=== PATIENT | male | born 1960 | race Caucasian/White ===

== ENCOUNTER → 2017-03-30 | Outpatient (CLI) | payer BC ==
[~2017-03-30] MED LIST: LITHIUM CARB300 MG PO; LOTREL 10 MG-201 CAP PO; TIMOPTIC 0.25% OPH
== END | disposition home or self-care (01) ==
LOC: LAB 10:42
DX: F31.9 Bipolar disorder, unspecified (principal)

== ENCOUNTER → 2017-06-23 | Outpatient (CLI) | payer OTHER | END | disposition home or self-care (01) | LOC: LAB 10:28 | DX: F31.9 Bipolar disorder, unspecified (principal) ==

== ENCOUNTER 2017-08-26 04:37 | Inpatient (IN) | payer OTHER ==
[~2017-08-26] VITALS: Ht 167.6 cm; Wt 106.1 kg
[2017-08-26] VITALS (25 sets, daily range): BP systolic 66–120; BP diastolic 40–76
--- NOTE | ~2017-08-26 | CON ---
[place], [place] REPORT OF CONSULTATION [facility]DEN [id number] UNIT #: [id number] ROOM: 410 DOCTOR: CARLEY WESTGARY BIRTHDATE: [birth year] DOS: 08/26/2017 REQUESTING PHYSICIAN: Dr. Shah. REASON FOR CONSULTATION: New onset atrial fibrillation. ASSESSMENT: 1. Current presentation for near syncope (the patient fell to his knees, no loss of consciousness). 2. Significant diarrhea starting last night. 3. New onset asymptomatic atrial fibrillation. 4. Relatively low heart rate could indicate early sick sinus syndrome. 5. Hypertension. 6. Unknown level of lipid. 7. Obesity with probable obstructive sleep apnea. PLAN: 1. Cycle cardiac enzymes. 2. Check thyroid function test. 3. Proceed with echocardiogram. 4. Lexiscan stress test. 5. Lopressor 25 mg p.o. b.i.d. 6. Stop heparin and start Lovenox. 7. Initiate Xarelto this evening. 8. Echocardiogram and stress test will be done this coming Monday. 9. Consider sleep study as an outpatient. 10. Exercise and weight loss. 11. Early followup upon discharge in our clinic here, [facility] and cardioversion will be considered within 2-3 weeks from anticoagulation. HISTORY OF PRESENT ILLNESS: The patient is a pleasant 57-year-old gentleman unknown to our group was admitted this morning after 3 bouts of severe diarrhea. Apparently, after that he was found by his that he was in drenching sweats, even though he denies ever any chest pain, chest pressure, heaviness or tightness. No symptomatic palpitation or any associated dizziness, lightheadedness or near syncope. The patient denies also any fever or chills. He had been maintaining good appetite with no significant weight changes recently. The patient was found out to be in atrial fibrillation, which was an incidental finding in the Emergency Room. The patient adamantly denies any complete loss of consciousness. He felt dizzy, lightheaded and fell to his knees. He never had such complaint before. He is active, walks routinely with no reported cardiac complaints. He easily can walk a mile without any provoked cardiac complaints. Main limitation after that is low back pain. He sleeps on 1 pillow with no reported PND, orthopnea or pedal edema. The patient does report loud snoring. PAST MEDICAL HISTORY: As detailed in my assessment. SOCIAL HISTORY: The patient denies ever any tobacco, alcohol or illicit drug abuse. [place], [place] REPORT OF CONSULTATION NAME: VANNESSA SNOWDEN UNIT #: [id number] ROOM: 410 DOCTOR: GARY HOWE MD BIRTHDATE: [birth year] FAMILY HISTORY: Both parents with no reported heart problems. He has 1 brother and 1 sister with no reported early heart disease. CURRENT MEDICATIONS: Zosyn, Zofran, Restoril, Flagyl. ALLERGIES: The patient has no known drug allergies. REVIEW OF SYSTEMS: Currently, the patient denies any headache, diplopia or blurry vision. No fever. No chills. No night sweats. No abdominal pain. No bright red blood per rectum or tarry stools. The patient denies any joint pain or muscular pain. No anxiety. No depression. No polyuria. No polydipsia. No skin rash. Review of all other systems has been negative. PHYSICAL EXAMINATION: GENERAL: The patient is alert, oriented x3, quite pleasant, sitting up in bed, does not appear in distress. Denies any ongoing cardiac complaints. VITAL SIGNS: Blood pressure 109/73, heart rate 113, respiratory rate of 14 and temperature 97.8. HEENT: Extraocular muscle intact. Pupils equal, round, reactive to light. Conjunctivae: No pallor. Throat: No petechiae. NECK: Good carotid upstroke. Unable to appreciate any bruit. No lymphadenopathy. No thyromegaly. HEART: S1, S2 with faint holosystolic murmur at the left upper sternal border. No rub. No sternal heave. CHEST AND BACK: No deformities. LUNGS: Decreased air movement. No rayray wheezing or rales. ABDOMEN: Obese, soft, nontender. Present bowel sounds. No masses. No bruits. LOWER EXTREMITIES: There is no edema on both under JOSE ELIAS hose with faint distal pulses. NEUROLOGIC: Grossly nonfocal. SKIN: There is no significant rash. DIAGNOSTIC DATA: Electrocardiogram showing atrial fibrillation with relatively controlled heart rate off any negative chronotropic medications. There are diffuse nonspecific ST-T changes. Chest x-ray showing slight volume overload with bilateral ____ slightly enlarged cardiac silhouette. LABORATORY DATA: White count 15.5, hemoglobin 13.3. There is no left shift. Troponin less than 0.015. BUN 25, creatinine 1.8, alk phos is 125. [place], [place] REPORT OF CONSULTATION NAME: VANNESSA SNOWDEN UNIT #: [id number] ROOM: [facility] DOCTOR: GARY HOWE MD BIRTHDATE: [birth year] GARY HOWE MD CM:CONSTR:REPORT OF CONSULTATION 1116 09/20/17 1906 interface
--- NOTE | ~2017-08-26 | PR ---
[place], [place] PROGRESS NOTE NAME: [facility] SNOWDEN [id number] UNIT #: [id number] ROOM: 410 DOCTOR: QUINTON GARNICA MD BIRTHDATE: [birth year] DOS: 08/28/2017 CARDIOLOGY PROGRESS NOTE SUBJECTIVE: The patient was seen in the Cardiology Department just prior to his stress test. The patient is a 57-year-old man who had no previous history of heart disease. He awakened on the morning of admission with diaphoresis, dyspnea and lightheadedness. He had diarrhea and possible syncope. He did fall and injure his right eyebrow. He denied any chest pain. He was seen by Cardiology on 08/26/2017, at which time he was in atrial fibrillation. He subsequently did convert spontaneously to sinus rhythm and now does feel better. His past history is positive for hypertension and lactose intolerance. PHYSICAL EXAMINATION: VITAL SIGNS: Today, his pulse is 70 and regular, blood pressure is 154/72. He is afebrile. NECK: Supple. He has no jugular distention. Carotids are full. LUNGS: Respirations are unlabored. His chest is clear. HEART: Has a regular rhythm with a fourth heart sound, but no third heart sound or murmur. The PMI is not displaced. ABDOMEN: Soft. EXTREMITIES: Showed no edema. LABORATORY DATA: Hemoglobin is 11.7, white count 7400 today, platelet count 285,000. Sodium is 148, potassium 4.3, BUN 16, creatinine 1.34. IMPRESSION: 1. Paroxysmal atrial fibrillation. Patient has reverted spontaneously to sinus rhythm. 2. CHADS-VASc score equals 1. Patient is being anticoagulated with rivaroxaban. 3. History of hypertension. PLAN: We will proceed with an exercise stress test. Further recommendations will depend upon the results of the stress test and the echocardiogram that was also done today. We thank the hospitalist physicians for asking our advice regarding his care. [place], [place] PROGRESS NOTE NAME: VANNESSA SNOWDEN Elisa UNIT #: [id number] ROOM: 410 DOCTOR: QUINTON GARNICA MD BIRTHDATE: [birth year] QUINTON GARNICA MD CM:PNTRANS [id number] QUINTON GARNICA MD 08/28/17 2301 interface
[~2017-08-26 04:37] MED LIST changes: -LOTREL 10 MG-201 CAP PO; +LOTREL 10-20 M1 EACH PO
[2017-08-26 05:13] LABS: BASO # 0.1 10*3/uL (0.0-0.1); BASO % 0.4 % (0.0-1.0); EOS # 0.2 10*3/uL (0.0-0.4); EOS % 1.4 % (1.0-4.0); HEMATOCRIT 40.9 % (42.0-52.0); HEMOGLOBIN 13.3 g/dl (14.0-18.0); LYMPH # 2.6 10*3/uL (1.3-4.4); LYMPH % 16.9 % (27.0-41.0); MEAN CELL VOLUME 91.7 fl (80.0-94.0); MEAN CORPUSCULAR HGB 29.8 pg (27.0-31.0); MEAN CORPUSCULAR HGB CONC 32.5 g/dl (33.0-37.0); MONO # 0.7 10*3/uL (0.1-1.0); MONO % 4.2 % (3.0-9.0); NEUT # 11.9 10*3/uL (2.3-7.9); NEUT % 76.5 % (47.0-73.0); PLATELET COUNT AUTOMATED 377 10*3/uL (130-400); RED BLOOD COUNT 4.46 10*6/uL (4.50-5.90); RED CELL DISTRI WIDTH 14.7 % (0-14.5); WHITE BLOOD COUNT 15.5 10*3/uL (4.8-10.8)
--- NOTE | 2017-08-26 05:21 | NUR ---
DR NOTIFIED OF CRITICAL LACTIC ACID 3.1
[2017-08-26 05:23] LABS: ACT PARTIAL THROMBO TIME 22.7 SECONDS (20.8-31.5)
--- NOTE | 2017-08-26 05:24 | NUR ---
HEMOOCCULT TESTING DONE BY DR. ROGERS AND WAS NEGATIVE FOR BLOOD. WILL CONTINUE TO MONITOR.
[2017-08-26 05:30] LABS: ALBUMIN 3.2 gm/dl (3.1-4.5); CREATININE 1.84 mg/dL (0.70-1.30); POTASSIUM 3.8 mmol/L (3.5-5.1); TOTAL PROTEIN 7.2 gm/dL (6.4-8.2)
[2017-08-26 07:06] LABS: BILIRUBIN NEGATIVE (NEGATIVE); BLOOD NEGATIVE (NEGATIVE); CLARITY CLEAR (CLEAR); COLOR YELLOW (YELLOW); GLUCOSE NEGATIVE (NEGATIVE); KETONE NEGATIVE (NEGATIVE); LEUKO ESTERASE NEGATIVE (NEGATIVE); NITRITE NEGATIVE (NEGATIVE); SPECIFIC GRAVITY <= 1.005 (1.005-1.030); UROBILINOGEN 0.2 E.U./dl (0.2-1.0)
--- NOTE | 2017-08-26 07:14 | NUR ---
DR. CARCAMO NOTIFIED OF CRITICAL LACTIC RESULT.
[2017-08-26 07:20] LABS: BACTERIA TRACE; MUCOUS TRACE; RBC 0-2 rbc/hpf (0-2)
--- NOTE | 2017-08-26 07:39 | NUR ---
REPORT RECEIVED AT 0710 FROM ARMANI SMITH. THIS PT IS AWAKE AND ALERT. HIS COLOR IS PINK,SKIN W/D. RESPIRATIONS ARE NON-LABORED. IV FLUID IS INFUSING,SITE APPEARS ASYMPTOMATIC. PT HAS NO CO PAIN OR DISCOMFORT AT THIS TIME. MONITOR SHOWS ATRIAL FIBRILLATION,RATE AT 118. PT HAS NEVER BEEM DIAGNOSED WITH AFIB IN THE PAST. HE WILL BE ADMITTED,WAITING FOR BED ASSIGNMENT. AB SMITH
--- NOTE | 2017-08-26 08:30 | NUR ---
A 57yr old male, admitted to [facility], under the services of VIGNESH Jones DO with a diagnosis of colitis, syncope and new onset atrial fib. Chief complaint is diarrhea, weak, passing out at home. Patient arrived via stretcher from ER. Monitor applied. Initial assessment completed. Vital signs taken and recorded. See assessment for past medical history, medications and allergies. Patient and/or family oriented to unit. [facility] visitation policy reviewed. Clothing/patient valuable form completed. SABRINA DUNBAR L
[2017-08-26] MEDS ORDERED: LITHIUM CARBON150 MG PO (08:51)
[2017-08-26] MEDS ORDERED: LITHIUM CARBON300 MG PO (08:52)
--- NOTE | 2017-08-26 09:05 | NUR ---
DR WEIR HERE, LAB CALLED WITH LACTIC ACID 2.2. DR WEIR IMMEDIATELY NOTIFIED.
--- NOTE | 2017-08-26 10:00 | NUR ---
CARDIOLOGY IN TO SEE PT
--- NOTE | 2017-08-26 13:14 | NUR ---
TRANSFERRED TO [facility] WITH BELONGINGS
--- NOTE | 2017-08-26 20:23 | NUR ---
1952 RESTING IN BED WATCHING TV. ALERT AND PLEASANT. DENIES C/O'S DIZZINESS OR DIARRHEA AT THIS TIME. IV FLUIDS CONT. NO DISTRESS NOTED.
--- NOTE | 2017-08-26 22:19 | NUR ---
UP TO BR. PUT CALL LIGHT ON. GAIT STEADY. NO C/O'S DIZZINESS VOICED. IV FLUIDS CONT. MONITOR REMAINS A-FIB. CONDITION GUARDED.
--- NOTE | 2017-08-26 23:33 | NUR ---
PATIENT RESTING COMFORTABLY IN BED. PLEASANT AND COOPERATIVE WITH CARE. RESPIRATIONS EASY/REG, PATIENT HAS NO VOICED COMPLAINTS AT THIS TIME. FLUIDS MAINTAINED PER ORDER, CALL LIGHT IN REACH. WILL MONITOR.
[2017-08-27] VITALS: BP 117/67
--- NOTE | 2017-08-27 01:32 | NUR ---
24 HOUR CHART CHECK COMPLETE
--- NOTE | 2017-08-27 03:43 | NUR ---
SLEEPING, NO SXS OF DISTRESS. FLUIDS MAINTAINED PER ORDER. CALL LIGHT IN REACH.
[2017-08-27 05:57] LABS: BASO % 0.4 % (0.0-1.0); EOS # 0.1 10*3/uL (0.0-0.4); EOS % 1.3 % (1.0-4.0); HEMATOCRIT 35.5 % (42.0-52.0); HEMOGLOBIN 11.7 g/dl (14.0-18.0); LYMPH # 1.8 10*3/uL (1.3-4.4); LYMPH % 24.1 % (27.0-41.0); MEAN CELL VOLUME 93.9 fl (80.0-94.0); MEAN PLATELET VOLUME 10.3 fl (9.6-12.3); MONO # 0.7 10*3/uL (0.1-1.0); MONO % 9.7 % (3.0-9.0); NEUT # 4.8 10*3/uL (2.3-7.9); NEUT % 64.1 % (47.0-73.0); PLATELET COUNT AUTOMATED 285 10*3/uL (130-400); RED BLOOD COUNT 3.78 10*6/uL (4.50-5.90); RED CELL DISTRI WIDTH 15.7 % (0-14.5); WHITE BLOOD COUNT 7.4 10*3/uL (4.8-10.8)
[2017-08-27 06:29] LABS: ALBUMIN 3.1 gm/dl (3.1-4.5); ALKALINE PHOSPHATASE 105 U/L (45-117); BUN 16 mg/dl (7-24); CHLORIDE 119 mmol/L (98-107); CHOLESTEROL 127 mg/dL (<200); CREATININE 1.34 mg/dL (0.70-1.30); HDL CHOLESTEROL 32 mg/dl (40-60); LDL CHOLESTEROL 61 mg/dL (9-159); PHOSPHOROUS 2.3 mg/dL (2.5-4.9); POTASSIUM 4.3 mmol/L (3.5-5.1); SGOT/AST 21 IU/L (3-35); SGPT/ALT 43 U/L (12-78); SODIUM 148 mmol/L (136-145); TOTAL PROTEIN 6.8 gm/dL (6.4-8.2); TRIGLYCERIDES 170 mg/dl (<150); VLDL CHOLESTEROL 34 mg/dL (6-40)
[2017-08-27 06:34] LABS: THYROID STIM HORMONE (HS) 0.515 uIU/ml (0.358-4.75)
[2017-08-27 07:30] LABS: VITAMIN D, 25-HYDROXY 10.3 ng/mL (30-100)
[2017-08-27 08:00] VITALS: BP 113/66
[2017-08-27 10:00] VITALS: BP 112/67
--- NOTE | 2017-08-27 11:41 | NUR ---
PT GIVEN TEACHING PAMPHLET ON NEW MEDICATION; METOPROLOL.
[2017-08-27 12:00] VITALS: BP 109/65
--- NOTE | 2017-08-27 12:00 | NUR ---
PATIENT CONVERTED TO NORMAL SINUS RHYTHYM WITH BUNDLE BRANCH BLOCK WITH RATE OF 60'S -70'S.
--- NOTE | 2017-08-27 13:17 | NUR ---
PT GIVEN TYLNEOL FOR COMPLAINTS OF HEADACHE AT THIS TIME. WILL MONITOR.
--- NOTE | 2017-08-27 13:50 | NUR ---
PATIENT HAVING SINUS BRADYCARDIA WHILE SLEEPING, RATE 50'S AND REGULAR, LOW 44BPM.
[2017-08-27 16:00] VITALS: BP 112/67
--- NOTE | 2017-08-27 19:35 | NUR ---
Alert and oriented x3. at bedside. Lungs clear throughout. Denies dizziness. Abdomen normoactive bs x4. IVf infusing per orders. Medicated with tylenol per prn order for right rib pain.
[2017-08-27 20:00] VITALS: BP 117/60
--- NOTE | 2017-08-27 23:30 | NUR ---
ASSUMED CARE FOR THIS PT AT THIS TIME. NO C/O VOICED. SOFT BM COLLECTED FOR O&P AND CX. PT DENIES ANY FURTHER EPISODES OF DIZZINESS/LIGHTHEADEDNESS. CALL LIGHT IN REACH. PT REMINDED OF NPO STATUS AFTER MIDNIGHT FOR TESTING. PT ACKNOWLEDGES.
[2017-08-28] VITALS: BP 111/54
--- NOTE | 2017-08-28 01:30 | NUR ---
24 HR chart check completed.
[2017-08-28 04:00] VITALS: BP 118/68
--- NOTE | 2017-08-28 06:34 | NUR ---
PT AMBULATING BY SELF TO BR. DENIES ANY C/O AT THIS TIME.
[2017-08-28 08:00] VITALS: BP 154/72
--- NOTE | 2017-08-28 09:00 | NUR ---
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 Patient states lives at home with . There are few steps in the home. Physician: sue nguyen [facility]acy: [facility]: [facility] Patient's level of ADLs: INDEPENDENT Patient has working utilities: all working DME: none Follow-up physician's appointment after d/c: will be made by hospitalist nurse director upon discharge Does patient want to access PORTAL?: no Discharge plan discussed with patient, present, patient lives at home with , is independent in adls and ambulation, patient will be going back home when able, patient works and drives. patient denies any home needs. BETTINA MORENO
--- NOTE | 2017-08-28 10:37 | NUR ---
INFORMED SIGNED CONSENT OBTAINED FOR CARDIOLITE STRESS TEST WITH DR GARNICA. RESTING EKG NSR HR 65 BP 144/84 IN SUPINE POSITION, STANIDNG HR 71 BP 150/80. PT COMPLETED 4;45 OF A JUSTUS PROTOCOL WITH PT COMPLETING 1;45 OF STAGE II AT 2.5 MPH AND A 12% GRADE. PT REACHED A PEAK HR OF 145 WHICH REPRESENTS 90% OF PREDICTED MAXIMUM AND A PEAK BP OF 192/80. PVC'S WITH COUPLETS NOTED, NO ST CHANGES. TEST TERMINATED DUE TO FATIGUE AND SOB. LAST HR OF 102 BP 168/84. PT IN STABLE CONDITION, AWAITING NUCLEAR IMAGES.
[2017-08-28 12:00] VITALS: BP 129/70
--- NOTE | 2017-08-28 14:43 | NUR ---
PT AWAKE ALERT AND ORIENTED X3, NO COMPLIANTS AT THIS TIME, DENIES PAIN, N/V/D SPOUSE AT BEDSIDE.
[2017-08-28] MEDS ORDERED: NATURE'S BLEND F1 MG PO (15:29)
[2017-08-28] MEDS ORDERED: Vitamin D PO (15:29)
[2017-08-28] MEDS ORDERED: XARE20MG PO (15:29)
[2017-08-28] MEDS ORDERED: LOPRESSOR25 MG PO (15:29)
--- NOTE | 2017-08-28 16:50 | NUR ---
Discharge instructions reviewed with patient/family. Patient receptive and verbalizes understanding. Follow-up care arranged. Written instructions given to patient/family. Patient left the unit with his and all personal belongings. DOLLY REYNOLDS
== END 2017-08-28 16:50 | disposition home or self-care (01) | DRG 871 ==
LOC: ED 04:37 → 4E 06:43 → EDHOLD 06:43 → 4E 07:18 → ICCU 08:13 → 4E 12:19
PROVIDERS: Emergency Medicine Emergency Medical Services; Internal Medicine; ADMIT Internal Medicine
PROC: 4A02XM4 Measurement of Cardiac Total Activity, External Approach (ICD-10-PCS; principal; 2017-08-28)
DX: A41.9 Sepsis, unspecified organism (principal); N17.0 Acute kidney failure with tubular necrosis; E87.2 Acidosis; I95.9 Hypotension, unspecified; E83.41 Hypermagnesemia; E83.39 Other disorders of phosphorus metabolism; I48.0 Paroxysmal atrial fibrillation; K52.9 Noninfective gastroenteritis and colitis, unspecified; E86.1 Hypovolemia; R65.20 Severe sepsis without septic shock; D64.9 Anemia, unspecified; E73.9 Lactose intolerance, unspecified; I10 Essential (primary) hypertension; E66.9 Obesity, unspecified; F31.9 Bipolar disorder, unspecified; H40.9 Unspecified glaucoma; E53.8 Deficiency of other specified B group vitamins; Z82.49 Family history of ischemic heart disease and other diseases of the circulatory system; Z80.1 Family history of malignant neoplasm of trachea, bronchus and lung; Z68.37 Body mass index [BMI] 37.0-37.9, adult; Z79.899 Other long term (current) drug therapy; Z79.01 Long term (current) use of anticoagulants

== ENCOUNTER 2017-09-13 19:03 | Inpatient (IN) | payer OTHER ==
[~2017-09-13] VITALS: Ht 167.6 cm; Wt 98.5 kg
[~2017-09-13 19:03] MED LIST changes: +LITHIUM CARBON150 MG PO; +LITHIUM CARBON300 MG PO; +LOPRESSOR25 MG PO; +NATURE'S BLEND F1 MG PO; +Vitamin D PO; +XARE20MG PO
[2017-09-13 19:12] VITALS: BP 143/72
[2017-09-13 19:50] LABS: BASO # 0.1 10*3/uL (0.0-0.1); BASO % 0.5 % (0.0-1.0); EOS # 0.1 10*3/uL (0.0-0.4); EOS % 1.4 % (1.0-4.0); HEMATOCRIT 35.6 % (42.0-52.0); HEMOGLOBIN 11.6 g/dl (14.0-18.0); LYMPH # 1.9 10*3/uL (1.3-4.4); LYMPH % 21.1 % (27.0-41.0); MEAN CORPUSCULAR HGB 30.3 pg (27.0-31.0); MEAN CORPUSCULAR HGB CONC 32.6 g/dl (33.0-37.0); MEAN PLATELET VOLUME 10.2 fl (9.6-12.3); MONO # 0.9 10*3/uL (0.1-1.0); MONO % 9.4 % (3.0-9.0); NEUT # 6.2 10*3/uL (2.3-7.9); NEUT % 67.4 % (47.0-73.0); PLATELET COUNT AUTOMATED 290 10*3/uL (130-400); RED BLOOD COUNT 3.83 10*6/uL (4.50-5.90); RED CELL DISTRI WIDTH 14.3 % (0-14.5); WHITE BLOOD COUNT 9.2 10*3/uL (4.8-10.8)
[2017-09-13 20:07] LABS: CREATININE 2.26 mg/dL (0.70-1.30); POTASSIUM 4.2 mmol/L (3.5-5.1); TOTAL PROTEIN 8.2 gm/dL (6.4-8.2)
--- NOTE | 2017-09-13 20:41 | NUR ---
CRITICAL LITHIUM LEVEL GIVEN TO SMILEY SMITH AND DR HEDRICK
[2017-09-13 22:36] VITALS: BP 113/51
[2017-09-13 23:00] VITALS: BP 137/61
--- NOTE | 2017-09-13 23:00 | NUR ---
Time: 2299 A 57 year old M admitted to under services of KRISTINA COBIAN DO, Pt. arrived via stretcher from ER. Chief complaint: TREMORS. CLAY ABRAMS
--- NOTE | 2017-09-14 00:12 | NUR ---
SPOKE TO POISON CONTROL AT 1210. RECOMMENDS Q4 LITHIUM LEVELS, Q4 BUN, AND Q4 CREATININE LEVELS TO BE DRAW. WILL BE FOLLOWING UP AT [phone] FOR REPEAT LAB LEVELS.
[2017-09-14] MEDS ORDERED: DEBROX 15 ML 1515 ML OT (01:07)
--- NOTE | 2017-09-14 01:15 | NUR ---
CALLED DR. JENNIFER HARRIS TO INFORM HIM THAT THE MED REC WAS UP TO DATE.
[2017-09-14] MEDS ORDERED: LOPRESSOR25 MG PO (01:19)
--- NOTE | 2017-09-14 01:30 | NUR ---
INFORMED PATIENT THAT THE LAB WOULD BE DRAWING HIS BLOOD EVERY 4 HOURS.
--- NOTE | 2017-09-14 02:30 | NUR ---
POISON CONTROL CALLED & WAS UPDATED ON LITHIUM RESULTS.
--- NOTE | 2017-09-14 02:33 | NUR ---
CRITICAL LAB, LITHIUM 2.28. DR ORANTES NOTIFIED AT 1455.
[2017-09-14 06:12] LABS: BASO % 0.5 % (0.0-1.0); EOS # 0.1 10*3/uL (0.0-0.4); EOS % 1.8 % (1.0-4.0); HEMATOCRIT 33.3 % (42.0-52.0); HEMOGLOBIN 10.7 g/dl (14.0-18.0); LYMPH # 1.6 10*3/uL (1.3-4.4); LYMPH % 24.2 % (27.0-41.0); MEAN CELL VOLUME 95.1 fl (80.0-94.0); MEAN CORPUSCULAR HGB 30.6 pg (27.0-31.0); MEAN CORPUSCULAR HGB CONC 32.1 g/dl (33.0-37.0); MEAN PLATELET VOLUME 10.5 fl (9.6-12.3); MONO # 0.6 10*3/uL (0.1-1.0); MONO % 9.3 % (3.0-9.0); NEUT # 4.3 10*3/uL (2.3-7.9); PLATELET COUNT AUTOMATED 234 10*3/uL (130-400); RED CELL DISTRI WIDTH 14.5 % (0-14.5); WHITE BLOOD COUNT 6.7 10*3/uL (4.8-10.8)
--- NOTE | 2017-09-14 06:35 | NUR ---
VERONICA FROM POISON CONTROL CALLED & UPDATED ON PATIENT.
[2017-09-14 06:45] LABS: ALBUMIN 3.5 gm/dl (3.1-4.5); CREATININE 1.5 mg/dL (0.70-1.30); FREE T4 0.96 ng/dl (0.76-1.46); PHOSPHOROUS 2.4 mg/dL (2.5-4.9); POTASSIUM 4.4 mmol/L (3.5-5.1); TOTAL PROTEIN 7.3 gm/dL (6.4-8.2)
[2017-09-14 06:49] LABS: ACT PARTIAL THROMBO TIME 24.1 SECONDS (20.8-31.5); INTERNATIONAL NORM RATIO 1.1 (2.0-3.5)
[2017-09-14 06:51] LABS: THYROID STIM HORMONE (HS) 2.26 uIU/ml (0.358-4.75)
[2017-09-14 07:33] LABS: VITAMIN D, 25-HYDROXY 17.8 ng/mL (30-100)
[2017-09-14 08:00] VITALS: BP 142/64
[2017-09-14 16:00] VITALS: BP 135/66
[2017-09-14 20:00] VITALS: BP 128/68
--- NOTE | 2017-09-14 20:24 | NUR ---
PT LYING IN BED, EYES OPEN, ALERT ORIENTED AND PLEASANT. NO S/S OF PAIN OR DISTRESS. NO COMPLAINTS VOICED AT THIS TIME. ASSESSMENT COMPLETE, HEART RATE 80 UPON AUSCULTATION, ACTIVE BSX4 QUADS, LUNGS CLEAR THROUGHOUT. NO TREMORS NOTED. ALL SAFETY MEASURES IN PLACE. IV SITE PATENT, DRESSING DRY AND IN TACT. FLUIDS RUNNING PER ORDER. ALL SAFETY MEASURES IN PLACE.
--- NOTE | 2017-09-14 21:00 | NUR ---
PT GIVEN HS MEDICATIONS, TAKEN WITH EASE. RESPIRATIONS EASY AND UNLABORED. NO S/S OF DISTRESS. PT PLEASANT AND COOPERATIVE. IV SITE PATENT AND DRESSING DRY AND IN TACT. NO NEW ABNORMALTIES NOTED, PT LYING IN BED AT THIS TIME.
[2017-09-15] VITALS: BP 135/67
--- NOTE | 2017-09-15 00:47 | NUR ---
24 HR chart check completed.
--- NOTE | 2017-09-15 04:13 | NUR ---
PT NOT AWAKENED PER [facility] POLICY. RESPIRATIONS 16, EASY AND NON LABORED. NO S/S OF PAIN OR DISTRESS. IV FLUIDS RUNNING PER ORDER. IV SITE PATENT, DRESSING DRY AND IN TACT. ALL SAFETY MEASURES IN PLACE.
--- NOTE | 2017-09-15 06:02 | NUR ---
PT 6TH BAG OF IV NORMAL SALINE HUNG AT THIS TIME. PT RESTING, EASILY AROUSED. NO S/S OF DISTRESS. RESPIRATIONS EASY. IV SITE PATENT, DRESSING DRY AND IN TACT.
[2017-09-15 08:00] VITALS: BP 146/80
[2017-09-15 08:03] LABS: CHLORIDE 115 mmol/L (98-107); CREATININE 1.18 mg/dL (0.70-1.30); POTASSIUM 4.3 mmol/L (3.5-5.1); SODIUM 143 mmol/L (136-145)
[2017-09-15 08:04] LABS: BUN 19 mg/dl (7-24)
--- NOTE | 2017-09-15 10:23 | NUR ---
SPOKE WITH TERRI FROM POISON CONTROL, LATEST LITHIUM LEVEL WAS GIVEN TO THEM. SHE STATED THAT THEY ARE GOING TO CLOSE HIS CASE ON THEIR END.DR LIAO NOTIFIED.
[2017-09-15] MEDS ORDERED: LITHIUM CARBON300 MG PO (15:55)
[2017-09-15 16:00] VITALS: BP 151/72
--- NOTE | 2017-09-15 16:36 | NUR ---
Discharge instructions reviewed with patient/family. Patient receptive and verbalizes understanding. Follow-up care arranged. Written instructions given to patient/family. SHARON DAILEY
== END 2017-09-15 16:36 | disposition home or self-care (01) | DRG 917 ==
LOC: ED 19:03 → 4E 22:25 → EDHOLD 22:25 → 4E 22:32
PROVIDERS: Emergency Medicine; Internal Medicine; Student in an Organized Health Care Education/Training Program; ADMIT Internal Medicine
DX: T43.591A Poisoning by other antipsychotics and neuroleptics, accidental (unintentional), initial encounter (principal); N17.0 Acute kidney failure with tubular necrosis; E87.1 Hypo-osmolality and hyponatremia; I48.0 Paroxysmal atrial fibrillation; F31.9 Bipolar disorder, unspecified; I10 Essential (primary) hypertension; E66.9 Obesity, unspecified; R74.8 Abnormal levels of other serum enzymes; D64.9 Anemia, unspecified; E73.9 Lactose intolerance, unspecified; E55.9 Vitamin D deficiency, unspecified; E53.8 Deficiency of other specified B group vitamins; H40.10X0 Unspecified open-angle glaucoma, stage unspecified; Z82.49 Family history of ischemic heart disease and other diseases of the circulatory system; Y92.89 Other specified places as the place of occurrence of the external cause; Z79.899 Other long term (current) drug therapy; Z80.1 Family history of malignant neoplasm of trachea, bronchus and lung; Z98.42 Cataract extraction status, left eye; Z68.35 Body mass index [BMI] 35.0-35.9, adult

== ENCOUNTER → 2017-09-27 | Outpatient (CLI) | payer OTHER ==
[~2017-09-27] MED LIST changes: +DEBROX 15 ML 1515 ML OT
[2017-09-27 12:15] LABS: IRON 37 ug/dL (65-175); TOTAL IRON BINDING CAPACITY 301 ug/dl (250-450)
== END | disposition home or self-care (01) ==
LOC: LAB 11:28
PROVIDERS: Nurse Practitioner Primary Care
DX: D50.9 Iron deficiency anemia, unspecified (principal); F31.9 Bipolar disorder, unspecified

== ENCOUNTER → 2017-10-20 | Outpatient (CLI) | payer OTHER | LOC: LAB 13:12 | DX: F31.9 Bipolar disorder, unspecified (principal) ==

== ENCOUNTER → 2017-11-03 | Outpatient (CLI) | payer OTHER | END | disposition home or self-care (01) | LOC: LAB 08:36 | DX: F31.9 Bipolar disorder, unspecified (principal) ==

== ENCOUNTER → 2017-11-22 | Outpatient (CLI) | payer OTHER | END | disposition home or self-care (01) | LOC: LAB 08:52 | DX: F31.9 Bipolar disorder, unspecified (principal) ==

== ENCOUNTER → 2017-12-05 | Outpatient (CLI) | payer OTHER | END | disposition home or self-care (01) | LOC: LAB 08:27 | DX: F31.9 Bipolar disorder, unspecified (principal) ==

== ENCOUNTER → 2018-01-04 | Outpatient (CLI) | payer OTHER | END | disposition home or self-care (01) | LOC: LAB 10:10 | DX: F31.9 Bipolar disorder, unspecified (principal) ==

== ENCOUNTER → 2018-01-31 | Outpatient (CLI) | payer OTHER | END | disposition home or self-care (01) | LOC: LAB 08:41 | DX: F31.9 Bipolar disorder, unspecified (principal) ==

== ENCOUNTER → 2018-02-22 | Outpatient (CLI) | payer OTHER | LOC: LAB 08:07 | DX: F31.9 Bipolar disorder, unspecified (principal) ==

== ENCOUNTER → 2018-03-12 | Outpatient (CLI) | payer OTHER | END | disposition home or self-care (01) | LOC: LAB 14:48 | DX: F31.9 Bipolar disorder, unspecified (principal) ==

== ENCOUNTER → 2018-03-22 | Outpatient (CLI) | payer OTHER | END | disposition home or self-care (01) | LOC: LAB 13:17 | DX: F31.9 Bipolar disorder, unspecified (principal) ==

== ENCOUNTER → 2018-04-06 | Outpatient (CLI) | payer OTHER ==
[2018-04-06 09:30] LABS: BASO # 0.1 10*3/uL (0.0-0.1); BASO % 1.2 % (0.0-1.0); EOS # 0.2 10*3/uL (0.0-0.4); EOS % 4.7 % (1.0-4.0); HEMATOCRIT 44.6 % (42.0-52.0); HEMOGLOBIN 14.3 g/dl (14.0-18.0); LYMPH # 1.7 10*3/uL (1.3-4.4); LYMPH % 34.2 % (27.0-41.0); MEAN CELL VOLUME 91.8 fl (80.0-94.0); MEAN CORPUSCULAR HGB 29.4 pg (27.0-31.0); MEAN CORPUSCULAR HGB CONC 32.1 g/dl (33.0-37.0); MEAN PLATELET VOLUME 10.7 fl (9.6-12.3); MONO # 0.5 10*3/uL (0.1-1.0); MONO % 10.3 % (3.0-9.0); NEUT # 2.5 10*3/uL (2.3-7.9); NEUT % 49.4 % (47.0-73.0); PLATELET COUNT AUTOMATED 252 10*3/uL (130-400); RED BLOOD COUNT 4.86 10*6/uL (4.50-5.90); RED CELL DISTRI WIDTH 14.7 % (0-14.5); WHITE BLOOD COUNT 5.1 10*3/uL (4.8-10.8)
[2018-04-06 09:41] LABS: ALBUMIN 3.8 gm/dl (3.1-4.5); ALKALINE PHOSPHATASE 127 U/L (45-117); BUN 12 mg/dl (7-24); CHLORIDE 108 mmol/L (98-107); CHOLESTEROL 177 mg/dL (<200); CREATININE 1.06 mg/dL (0.70-1.30); HDL CHOLESTEROL 37 mg/dl (40-60); IRON 62 ug/dL (65-175); LDL CHOLESTEROL 103 mg/dL (9-159); POTASSIUM 4.2 mmol/L (3.5-5.1); SGOT/AST 36 IU/L (3-35); SGPT/ALT 67 U/L (12-78); SODIUM 141 mmol/L (136-145); TOTAL IRON BINDING CAPACITY 305 ug/dl (250-450); TOTAL PROTEIN 8.3 gm/dL (6.4-8.2); TRIGLYCERIDES 185 mg/dl (<150); VLDL CHOLESTEROL 37 mg/dL (6-40)
== END | disposition home or self-care (01) ==
LOC: LAB 08:51
PROVIDERS: Nurse Practitioner Primary Care
DX: I10 Essential (primary) hypertension (principal); E55.9 Vitamin D deficiency, unspecified; D50.8 Other iron deficiency anemias

== ENCOUNTER → 2018-04-18 | Outpatient (CLI) | payer OTHER | END | disposition home or self-care (01) | LOC: LAB 14:08 | DX: F31.9 Bipolar disorder, unspecified (principal) ==

== ENCOUNTER → 2018-04-26 | Outpatient (CLI) | payer OTHER | END | disposition home or self-care (01) | LOC: LAB 08:57 | DX: F31.9 Bipolar disorder, unspecified (principal) ==

== ENCOUNTER → 2018-05-11 | Outpatient (CLI) | payer OTHER | END | disposition home or self-care (01) | LOC: LAB 08:12 | DX: F31.9 Bipolar disorder, unspecified (principal) ==

== ENCOUNTER → 2018-07-13 | Outpatient (CLI) | payer OTHER | END | disposition home or self-care (01) | LOC: LAB 08:46 | DX: F31.9 Bipolar disorder, unspecified (principal) ==

== ENCOUNTER → 2018-08-03 | Outpatient (CLI) | payer OTHER | END | disposition home or self-care (01) | LOC: LAB 15:05 | DX: F31.9 Bipolar disorder, unspecified (principal) ==

== ENCOUNTER → 2018-08-24 | Outpatient (CLI) | payer OTHER ==
[2018-08-24 08:49] LABS: BASO # 0.1 10*3/uL (0.0-0.1); BASO % 1.1 % (0.0-1.0); EOS # 0.2 10*3/uL (0.0-0.4); EOS % 3.6 % (1.0-4.0); HEMATOCRIT 45.7 % (42.0-52.0); HEMOGLOBIN 14.9 g/dl (14.0-18.0); LYMPH # 1.6 10*3/uL (1.3-4.4); LYMPH % 28.4 % (27.0-41.0); MEAN CELL VOLUME 92.3 fl (80.0-94.0); MEAN CORPUSCULAR HGB 30.1 pg (27.0-31.0); MEAN CORPUSCULAR HGB CONC 32.6 g/dl (33.0-37.0); MEAN PLATELET VOLUME 10.1 fl (9.6-12.3); MONO # 0.5 10*3/uL (0.1-1.0); MONO % 8.5 % (3.0-9.0); NEUT # 3.2 10*3/uL (2.3-7.9); NEUT % 58.2 % (47.0-73.0); PLATELET COUNT AUTOMATED 258 10*3/uL (130-400); RED BLOOD COUNT 4.95 10*6/uL (4.50-5.90); RED CELL DISTRI WIDTH 14.6 % (0-14.5); WHITE BLOOD COUNT 5.6 10*3/uL (4.8-10.8)
[2018-08-24 09:13] LABS: ALBUMIN 3.8 gm/dl (3.1-4.5); ALKALINE PHOSPHATASE 106 U/L (45-117); BUN 12 mg/dl (7-24); CHLORIDE 108 mmol/L (98-107); CHOLESTEROL 155 mg/dL (<200); CREATININE 1.08 mg/dL (0.70-1.30); HDL CHOLESTEROL 39 mg/dl (40-60); LDL CHOLESTEROL 89 mg/dL (9-159); POTASSIUM 3.8 mmol/L (3.5-5.1); SGOT/AST 45 IU/L (3-35); SGPT/ALT 70 U/L (12-78); SODIUM 138 mmol/L (136-145); TOTAL PROTEIN 8.1 gm/dL (6.4-8.2); TRIGLYCERIDES 133 mg/dl (<150); VLDL CHOLESTEROL 27 mg/dL (6-40)
== END | disposition home or self-care (01) ==
LOC: LAB 08:16
PROVIDERS: Family Medicine
DX: Z13.1 Encounter for screening for diabetes mellitus (principal); I10 Essential (primary) hypertension; E66.9 Obesity, unspecified

== ENCOUNTER → 2018-09-10 | Outpatient (CLI) | payer OTHER | END | disposition home or self-care (01) | LOC: LAB 09:43 | DX: F31.9 Bipolar disorder, unspecified (principal) ==

== ENCOUNTER → 2018-10-29 | Outpatient (CLI) | payer OTHER | END | disposition home or self-care (01) | LOC: LAB 11:11 | DX: F31.9 Bipolar disorder, unspecified (principal) ==

== ENCOUNTER → 2018-11-28 | Outpatient (CLI) | payer OTHER | END | disposition home or self-care (01) | LOC: LAB 15:17 | DX: F31.9 Bipolar disorder, unspecified (principal) ==

== ENCOUNTER → 2019-06-28 | Outpatient (CLI) | payer OTHER | END | disposition home or self-care (01) | LOC: LAB 13:09 | DX: F31.9 Bipolar disorder, unspecified (principal) ==

== ENCOUNTER → 2019-08-02 | Outpatient (CLI) | payer OTHER | END | disposition home or self-care (01) | LOC: LAB 09:25 | DX: F31.9 Bipolar disorder, unspecified (principal) ==

== ENCOUNTER → 2019-09-11 | Outpatient (CLI) | payer OTHER ==
[2019-09-11 08:00] LABS: BASO # 0.1 10*3/uL (0.0-0.1); BASO % 0.9 % (0.0-1.0); EOS # 0.3 10*3/uL (0.0-0.4); EOS % 4.9 % (1.0-4.0); HEMATOCRIT 45.4 % (42.0-52.0); HEMOGLOBIN 14.3 g/dl (14.0-18.0); LYMPH # 1.7 10*3/uL (1.3-4.4); LYMPH % 29.6 % (27.0-41.0); MEAN CELL VOLUME 98.7 fl (80.0-94.0); MEAN CORPUSCULAR HGB 31.1 pg (27.0-31.0); MEAN CORPUSCULAR HGB CONC 31.5 g/dl (33.0-37.0); MEAN PLATELET VOLUME 10.6 fl (9.6-12.3); MONO # 0.5 10*3/uL (0.1-1.0); MONO % 8.8 % (3.0-9.0); NEUT # 3.2 10*3/uL (2.3-7.9); NEUT % 55.4 % (47.0-73.0); PLATELET COUNT AUTOMATED 232 10*3/uL (130-400); WHITE BLOOD COUNT 5.7 10*3/uL (4.8-10.8)
[2019-09-11 08:25] LABS: ALBUMIN 3.5 gm/dl (3.1-4.5); ALKALINE PHOSPHATASE 98 U/L (45-117); BUN 12 mg/dl (7-24); CHLORIDE 108 mmol/L (98-107); CHOLESTEROL 180 mg/dL (<200); HDL CHOLESTEROL 30 mg/dl (40-60); IRON 120 ug/dL (65-175); LDL CHOLESTEROL 109 mg/dL (9-159); POTASSIUM 3.8 mmol/L (3.5-5.1); SGOT/AST 71 IU/L (3-35); SGPT/ALT 112 U/L (12-78); SODIUM 139 mmol/L (136-145); TOTAL IRON BINDING CAPACITY 255 ug/dl (250-450); TOTAL PROTEIN 8.3 gm/dL (6.4-8.2); TRIGLYCERIDES 204 mg/dl (<150); VLDL CHOLESTEROL 41 mg/dL (6-40)
[2019-09-11 09:22] LABS: FERRITIN 713.8 ng/mL (22.0-322.0); VITAMIN D, 25-HYDROXY 24.8 ng/mL (30-100)
== END | disposition home or self-care (01) ==
LOC: LAB 07:14
PROVIDERS: Nurse Practitioner Primary Care
DX: Z12.5 Encounter for screening for malignant neoplasm of prostate (principal); E55.9 Vitamin D deficiency, unspecified; I10 Essential (primary) hypertension; D50.9 Iron deficiency anemia, unspecified

== ENCOUNTER → 2019-10-28 | Outpatient (CLI) | payer OTHER | END | disposition home or self-care (01) | LOC: LAB 07:47 | DX: F31.9 Bipolar disorder, unspecified (principal) ==

== ENCOUNTER → 2019-12-04 | Outpatient (CLI) | payer OTHER | END | disposition home or self-care (01) | LOC: LAB 10:19 | DX: F31.9 Bipolar disorder, unspecified (principal) ==

== ENCOUNTER → 2020-01-06 | Outpatient (CLI) | payer OTHER | END | disposition home or self-care (01) | LOC: LAB 10:01 | DX: F31.9 Bipolar disorder, unspecified (principal) ==

== ENCOUNTER → 2020-01-13 | Outpatient (CLI) | payer OTHER ==
[2020-01-13 16:29] LABS: ALBUMIN 3.6 gm/dl (3.1-4.5); ALKALINE PHOSPHATASE 119 U/L (45-117); BUN 14 mg/dl (7-24); CHLORIDE 108 mmol/L (98-107); CREATININE 1.28 mg/dL (0.70-1.30); POTASSIUM 3.7 mmol/L (3.5-5.1); SGOT/AST 53 IU/L (3-35); SGPT/ALT 75 U/L (12-78); SODIUM 138 mmol/L (136-145)
[2020-01-14 07:04] LABS: HEP B CORE AB, IGM Negative (Negative); HEPATITIS B SURFACE AG Negative (Negative); HEPATITIS C VIRUS ANTIBODY <0.1 s/co (0.0-0.9)
== END | disposition home or self-care (01) ==
LOC: LAB 14:27
PROVIDERS: Nurse Practitioner Primary Care
DX: R74.8 Abnormal levels of other serum enzymes (principal)

== ENCOUNTER → 2020-03-02 | Outpatient (CLI) | payer OTHER | END | disposition home or self-care (01) | LOC: LAB 14:49 | DX: F31.9 Bipolar disorder, unspecified (principal) ==

== ENCOUNTER → 2020-04-07 | Outpatient (CLI) | payer OTHER | END | disposition home or self-care (01) | LOC: LAB 10:13 | DX: F31.9 Bipolar disorder, unspecified (principal) ==

== ENCOUNTER → 2020-06-18 | Outpatient (CLI) | payer OTHER | END | disposition home or self-care (01) | LOC: LAB 10:09 | PROVIDERS: ATTEND Nurse Practitioner Family | DX: R31.9 Hematuria, unspecified (principal) ==

== ENCOUNTER → 2020-06-23 | Outpatient (CLI) | payer OTHER | END | disposition home or self-care (01) | LOC: LAB 09:28 | PROVIDERS: ATTEND Nurse Practitioner Family | DX: F31.9 Bipolar disorder, unspecified (principal) ==

== ENCOUNTER → 2020-07-08 | Outpatient (CLI) | payer OTHER | END | disposition home or self-care (01) | LOC: LAB 08:46 | PROVIDERS: ATTEND Nurse Practitioner Family | DX: F31.9 Bipolar disorder, unspecified (principal) ==

== ENCOUNTER → 2020-08-05 | Outpatient (CLI) | payer OTHER | END | disposition home or self-care (01) | LOC: LAB 10:43 | PROVIDERS: ATTEND Nurse Practitioner Family | DX: F31.9 Bipolar disorder, unspecified (principal) ==

== ENCOUNTER → 2020-09-02 | Outpatient (CLI) | payer OTHER ==
[2020-09-02 08:19] LABS: BASO # 0.1 10*3/uL (0.0-0.1); BASO % 0.9 % (0.0-1.0); EOS # 0.3 10*3/uL (0.0-0.4); EOS % 4.4 % (1.0-4.0); HEMATOCRIT 41.1 % (42.0-52.0); LYMPH # 1.5 10*3/uL (1.3-4.4); LYMPH % 26.1 % (27.0-41.0); MEAN CELL VOLUME 100.5 fl (80.0-94.0); MEAN CORPUSCULAR HGB CONC 31.9 g/dl (33.0-37.0); MEAN PLATELET VOLUME 10.9 fl (9.6-12.3); MONO # 0.4 10*3/uL (0.1-1.0); MONO % 7.7 % (3.0-9.0); NEUT # 3.5 10*3/uL (2.3-7.9); NEUT % 60.7 % (47.0-73.0); PLATELET COUNT AUTOMATED 181 10*3/uL (130-400); RED BLOOD COUNT 4.09 10*6/uL (4.50-5.90); RED CELL DISTRI WIDTH 14.3 % (0-14.5); WHITE BLOOD COUNT 5.7 10*3/uL (4.8-10.8)
[2020-09-02 08:21] LABS: ALBUMIN 3.4 gm/dl (3.1-4.5); ALKALINE PHOSPHATASE 106 U/L (45-117); BUN 14 mg/dl (7-24); CHLORIDE 108 mmol/L (98-107); CHOLESTEROL 165 mg/dL (<200); CREATININE 1.13 mg/dL (0.70-1.30); HDL CHOLESTEROL 38 mg/dl (40-60); LDL CHOLESTEROL 95 mg/dL (9-159); SGOT/AST 58 IU/L (3-35); SGPT/ALT 70 U/L (12-78); SODIUM 139 mmol/L (136-145); TRIGLYCERIDES 159 mg/dl (<150); VLDL CHOLESTEROL 32 mg/dL (6-40)
[2020-09-02 08:22] LABS: TOTAL PROTEIN 8.5 gm/dL (6.4-8.2)
[2020-09-03 10:09] LABS: CREATININE,URINE 37.7 mg/dL (Not Estab.); MICRO ALBUMIN/CRE RATIO <8 (0-29)
== END | disposition home or self-care (01) ==
LOC: LAB 07:23
PROVIDERS: ATTEND Nurse Practitioner Primary Care
DX: I10 Essential (primary) hypertension (principal); E55.9 Vitamin D deficiency, unspecified

== ENCOUNTER → 2020-10-05 | Outpatient (CLI) | payer OTHER | END | disposition home or self-care (01) | LOC: LAB 11:24 | PROVIDERS: ATTEND Nurse Practitioner Family | DX: F31.9 Bipolar disorder, unspecified (principal) ==

== ENCOUNTER → 2020-10-29 | Outpatient (CLI) | payer OTHER | END | disposition home or self-care (01) | LOC: LAB 09:07 | PROVIDERS: ATTEND Nurse Practitioner Family | DX: F31.9 Bipolar disorder, unspecified (principal) ==

== ENCOUNTER → 2020-11-04 | Outpatient (CLI) | payer OTHER ==
[2020-11-04 09:56] LABS: BASO % 0.7 % (0.0-1.0); EOS # 0.2 10*3/uL (0.0-0.4); EOS % 3.1 % (1.0-4.0); HEMATOCRIT 39.4 % (42.0-52.0); LYMPH # 1.3 10*3/uL (1.3-4.4); LYMPH % 22.4 % (27.0-41.0); MEAN PLATELET VOLUME 11.2 fl (9.6-12.3); MONO # 0.4 10*3/uL (0.1-1.0); MONO % 6.6 % (3.0-9.0); NEUT # 3.7 10*3/uL (2.3-7.9); NEUT % 66.8 % (47.0-73.0); PLATELET COUNT AUTOMATED 192 10*3/uL (130-400); RED BLOOD COUNT 4.06 10*6/uL (4.50-5.90); RED CELL DISTRI WIDTH 13.8 % (0-14.5); WHITE BLOOD COUNT 5.6 10*3/uL (4.8-10.8)
[2020-11-04 10:13] LABS: ALBUMIN 3.4 gm/dl (3.1-4.5); BUN 13 mg/dl (7-24); CHLORIDE 107 mmol/L (98-107); CREATININE 1.17 mg/dL (0.70-1.30); IRON 85 ug/dL (65-175); POTASSIUM 3.6 mmol/L (3.5-5.1); SGOT/AST 44 IU/L (3-35); SGPT/ALT 61 U/L (12-78); SODIUM 136 mmol/L (136-145); TOTAL IRON BINDING CAPACITY 261 ug/dl (250-450); TOTAL PROTEIN 8.4 gm/dL (6.4-8.2)
[2020-11-04 10:14] LABS: ALKALINE PHOSPHATASE 115 U/L (45-117)
[2020-11-04 10:45] LABS: FERRITIN 485.2 ng/mL (22.0-322.0); VITAMIN D, 25-HYDROXY 28.3 ng/mL (30-100)
== END | disposition home or self-care (01) ==
LOC: LAB 09:03
PROVIDERS: ATTEND Nurse Practitioner Primary Care
DX: I10 Essential (primary) hypertension (principal); E55.9 Vitamin D deficiency, unspecified; D50.8 Other iron deficiency anemias; D53.9 Nutritional anemia, unspecified

== ENCOUNTER → 2020-11-30 | Outpatient (CLI) | payer OTHER | END | disposition home or self-care (01) | LOC: LAB 14:50 | PROVIDERS: ATTEND Nurse Practitioner Family | DX: F31.9 Bipolar disorder, unspecified (principal) ==

== ENCOUNTER → 2021-02-05 | Outpatient (CLI) | payer OTHER | END | disposition home or self-care (01) | LOC: LAB 09:06 | PROVIDERS: ATTEND Nurse Practitioner Family | DX: F31.9 Bipolar disorder, unspecified (principal) ==

== ENCOUNTER → 2021-03-10 | Outpatient (CLI) | payer OTHER | END | disposition home or self-care (01) | LOC: LAB 14:58 | PROVIDERS: ATTEND Nurse Practitioner Family | DX: F31.9 Bipolar disorder, unspecified (principal) ==

== ENCOUNTER → 2021-05-05 | Outpatient (CLI) | payer OTHER | END | disposition home or self-care (01) | LOC: LAB 10:22 | PROVIDERS: ATTEND Nurse Practitioner Family | DX: F31.9 Bipolar disorder, unspecified (principal) ==

== ENCOUNTER → 2021-05-12 | Outpatient (CLI) | payer OTHER ==
[2021-05-12 15:06] LABS: HEMATOCRIT 37.7 % (42.0-52.0); MEAN CELL VOLUME 96.7 fl (80.0-94.0); MEAN CORPUSCULAR HGB 32.1 pg (27.0-31.0); MEAN CORPUSCULAR HGB CONC 33.2 g/dl (33.0-37.0); MEAN PLATELET VOLUME 10.8 fl (9.6-12.3); RED BLOOD COUNT 3.9 10*6/uL (4.50-5.90); RED CELL DISTRI WIDTH 13.5 % (0-14.5); WHITE BLOOD COUNT 5.4 10*3/uL (4.8-10.8)
[2021-05-12 15:29] LABS: ALBUMIN 3.5 gm/dl (3.1-4.5); ALKALINE PHOSPHATASE 105 U/L (45-117); BUN 15 mg/dl (7-24); CHLORIDE 110 mmol/L (98-107); CREATININE 1.16 mg/dL (0.70-1.30); POTASSIUM 3.5 mmol/L (3.5-5.1); SGOT/AST 44 IU/L (3-35); SGPT/ALT 53 U/L (12-78); SODIUM 139 mmol/L (136-145); TOTAL PROTEIN 8.4 gm/dL (6.4-8.2)
== END | disposition home or self-care (01) ==
LOC: LAB 14:40
PROVIDERS: ATTEND Nurse Practitioner Primary Care
DX: Z12.5 Encounter for screening for malignant neoplasm of prostate (principal); I10 Essential (primary) hypertension; E55.9 Vitamin D deficiency, unspecified

== ENCOUNTER → 2021-08-02 | Outpatient (CLI) | payer OTHER | END | disposition home or self-care (01) | LOC: LAB 10:22 | PROVIDERS: ATTEND Nurse Practitioner Family | DX: F31.9 Bipolar disorder, unspecified (principal) ==

== ENCOUNTER → 2021-08-16 | Outpatient (CLI) | payer OTHER | END | disposition home or self-care (01) | LOC: LAB 13:18 | PROVIDERS: ATTEND Nurse Practitioner Family | DX: F31.9 Bipolar disorder, unspecified (principal) ==

== ENCOUNTER → 2021-10-29 | Outpatient (CLI) | payer OTHER | END | disposition home or self-care (01) | LOC: LAB 10:27 | PROVIDERS: ATTEND Nurse Practitioner Family | DX: F31.9 Bipolar disorder, unspecified (principal) ==

== ENCOUNTER → 2021-12-01 | Outpatient (CLI) | payer OTHER | END | disposition home or self-care (01) | LOC: LAB 12:12 | PROVIDERS: ATTEND Nurse Practitioner Family | DX: F31.9 Bipolar disorder, unspecified (principal) ==

== ENCOUNTER → 2022-01-21 | Outpatient (CLI) | payer OTHER | END | disposition home or self-care (01) | LOC: LAB 11:39 | PROVIDERS: ATTEND Nurse Practitioner Family | DX: F31.9 Bipolar disorder, unspecified (principal) ==

== ENCOUNTER → 2022-02-11 | Outpatient (CLI) | payer OTHER | END | disposition home or self-care (01) | LOC: LAB 10:44 | PROVIDERS: ATTEND Nurse Practitioner Family | DX: F31.9 Bipolar disorder, unspecified (principal) ==

== ENCOUNTER → 2022-02-18 | Outpatient (CLI) | payer OTHER | END | disposition home or self-care (01) | LOC: LAB 10:03 | PROVIDERS: ATTEND Nurse Practitioner Family | DX: F31.9 Bipolar disorder, unspecified (principal) ==

== ENCOUNTER → 2022-04-01 | Outpatient (CLI) | payer OTHER | END | disposition home or self-care (01) | LOC: LAB 15:02 | PROVIDERS: ATTEND Nurse Practitioner Family | DX: F31.9 Bipolar disorder, unspecified (principal) ==

== ENCOUNTER → 2022-04-22 | Outpatient (CLI) | payer OTHER ==
[2022-04-22 12:24] LABS: BASO % 0.9 % (0.0-1.0); EOS # 0.2 10*3/uL (0.0-0.4); EOS % 3.5 % (1.0-4.0); HEMATOCRIT 35.8 % (42.0-52.0); LYMPH # 1.3 10*3/uL (1.3-4.4); LYMPH % 28.1 % (27.0-41.0); MEAN CORPUSCULAR HGB 32.8 pg (27.0-31.0); MEAN CORPUSCULAR HGB CONC 32.1 g/dl (33.0-37.0); MEAN PLATELET VOLUME 10.1 fl (9.6-12.3); MONO # 0.4 10*3/uL (0.1-1.0); MONO % 9.1 % (3.0-9.0); NEUT # 2.6 10*3/uL (2.3-7.9); NEUT % 58.2 % (47.0-73.0); PLATELET COUNT AUTOMATED 138 10*3/uL (130-400); RED BLOOD COUNT 3.51 10*6/uL (4.50-5.90); RED CELL DISTRI WIDTH 14.2 % (0-14.5); WHITE BLOOD COUNT 4.5 10*3/uL (4.8-10.8)
[2022-04-22 12:40] LABS: ALKALINE PHOSPHATASE 98 U/L (45-117); BUN 11 mg/dl (7-24); CHLORIDE 111 mmol/L (98-107); CHOLESTEROL 183 mg/dL (<200); CREATININE 1.14 mg/dL (0.70-1.30); LDL CHOLESTEROL 108 mg/dL (9-159); SGOT/AST 40 IU/L (3-35); SGPT/ALT 45 U/L (12-78); SODIUM 141 mmol/L (136-145); TRIGLYCERIDES 137 mg/dl (<150)
[2022-04-22 16:05] LABS: FERRITIN 172.9 ng/mL (22.0-322.0)
[2022-04-23 07:52] LABS: VITAMIN D, 25-HYDROXY 24.6 ng/mL (30-100)
== END | disposition home or self-care (01) ==
LOC: LAB 12:04
PROVIDERS: ATTEND Nurse Practitioner Primary Care
DX: I10 Essential (primary) hypertension (principal); E55.9 Vitamin D deficiency, unspecified; D50.8 Other iron deficiency anemias

== ENCOUNTER → 2022-05-18 | Outpatient (CLI) | payer OTHER | LOC: LAB 13:59 | PROVIDERS: ATTEND Nurse Practitioner Family | DX: F31.9 Bipolar disorder, unspecified (principal) ==

== ENCOUNTER → 2022-06-29 | Outpatient (CLI) | payer OTHER | END | disposition home or self-care (01) | LOC: LAB 14:28 | PROVIDERS: ATTEND Nurse Practitioner Family | DX: F31.9 Bipolar disorder, unspecified (principal) ==

== ENCOUNTER → 2022-09-28 | Outpatient (CLI) | payer OTHER | END | disposition home or self-care (01) | LOC: LAB 14:24 | PROVIDERS: ATTEND Nurse Practitioner Family | DX: F31.9 Bipolar disorder, unspecified (principal) ==

== ENCOUNTER 2022-10-24 09:59 | Emergency (ER) | payer OTHER ==
[~2022-10-24] VITALS: Ht 167.6 cm; Wt 104.3 kg
[2022-10-24 10:39] LABS: BASO % 0.3 % (0.0-1.0); EOS # 0.1 10*3/uL (0.0-0.4); EOS % 3.4 % (1.0-4.0); LYMPH # 0.7 10*3/uL (1.3-4.4); LYMPH % 20.7 % (27.0-41.0); MEAN CELL VOLUME 98.7 fl (80.0-94.0); MEAN CORPUSCULAR HGB 32.2 pg (27.0-31.0); MEAN CORPUSCULAR HGB CONC 32.6 g/dl (33.0-37.0); MEAN PLATELET VOLUME 10.8 fl (9.6-12.3); MONO # 0.3 10*3/uL (0.1-1.0); MONO % 8.7 % (3.0-9.0); NEUT # 2.4 10*3/uL (2.3-7.9); NEUT % 66.6 % (47.0-73.0); PLATELET COUNT AUTOMATED 171 10*3/uL (130-400); RED BLOOD COUNT 3.85 10*6/uL (4.50-5.90); RED CELL DISTRI WIDTH 13.9 % (0-14.5); WHITE BLOOD COUNT 3.6 10*3/uL (4.8-10.8)
[2022-10-24 10:55] LABS: ALKALINE PHOSPHATASE 102 U/L (46-116); BUN 20 mg/dl (9-23); CHLORIDE 102 mmol/L (98-107); POTASSIUM 3.5 mmol/L (3.4-5.1); SGPT/ALT 44 U/L (10-49); TOTAL PROTEIN 7.9 gm/dL (6.0-8.0)
== END 2022-10-24 12:00 | disposition home or self-care (01) ==
LOC: ED 09:59
PROVIDERS: Student in an Organized Health Care Education/Training Program
DX: R79.89 Other specified abnormal findings of blood chemistry (principal); Z98.42 Cataract extraction status, left eye

== ENCOUNTER → 2022-10-27 | Outpatient (CLI) | payer OTHER | END | disposition home or self-care (01) | LOC: LAB 12:03 | PROVIDERS: ATTEND Nurse Practitioner Family | DX: F31.9 Bipolar disorder, unspecified (principal) ==

== ENCOUNTER → 2022-11-01 | Outpatient (CLI) | payer OTHER | END | disposition home or self-care (01) | LOC: LAB 10:35 | PROVIDERS: ATTEND Nurse Practitioner Family | DX: F31.9 Bipolar disorder, unspecified (principal) ==

== ENCOUNTER → 2022-11-08 | Outpatient (CLI) | payer OTHER | END | disposition home or self-care (01) | LOC: LAB 13:54 | PROVIDERS: ATTEND Nurse Practitioner Family | DX: F31.9 Bipolar disorder, unspecified (principal) ==

== ENCOUNTER → 2022-11-15 | Outpatient (CLI) | payer OTHER | END | disposition home or self-care (01) | LOC: LAB 14:50 | PROVIDERS: ATTEND Nurse Practitioner Family | DX: F31.9 Bipolar disorder, unspecified (principal) ==

== ENCOUNTER → 2022-11-25 | Outpatient (CLI) | payer OTHER | END | disposition home or self-care (01) | LOC: LAB 10:57 | PROVIDERS: ATTEND Nurse Practitioner Family | DX: F31.9 Bipolar disorder, unspecified (principal) ==

== ENCOUNTER → 2022-12-08 | Outpatient (CLI) | payer OTHER | END | disposition home or self-care (01) | LOC: LAB 14:32 | PROVIDERS: ATTEND Nurse Practitioner Family | DX: F31.9 Bipolar disorder, unspecified (principal) ==

== ENCOUNTER → 2022-12-21 | Outpatient (CLI) | payer OTHER | END | disposition home or self-care (01) | LOC: LAB 14:42 | PROVIDERS: ATTEND Nurse Practitioner Family | DX: F31.9 Bipolar disorder, unspecified (principal) ==

== ENCOUNTER → 2023-01-05 | Outpatient (CLI) | payer OTHER | END | disposition home or self-care (01) | LOC: LAB 14:38 | PROVIDERS: ATTEND Nurse Practitioner Family | DX: F31.9 Bipolar disorder, unspecified (principal) ==

== ENCOUNTER → 2023-02-06 | Outpatient (CLI) | payer OTHER | END | disposition home or self-care (01) | LOC: LAB 10:55 | PROVIDERS: ATTEND Nurse Practitioner Family | DX: F31.9 Bipolar disorder, unspecified (principal) ==

== ENCOUNTER → 2023-03-08 | Outpatient (CLI) | payer OTHER | END | disposition home or self-care (01) | LOC: LAB 13:54 | PROVIDERS: ATTEND Nurse Practitioner Family | DX: F31.9 Bipolar disorder, unspecified (principal) ==

== ENCOUNTER → 2023-03-21 | Outpatient (CLI) | payer OTHER | END | disposition home or self-care (01) | LOC: RESCLI 00:33 | PROVIDERS: ATTEND Internal Medicine | DX: F31.9 Bipolar disorder, unspecified (principal); I10 Essential (primary) hypertension; E55.9 Vitamin D deficiency, unspecified; I48.91 Unspecified atrial fibrillation; D64.9 Anemia, unspecified; Z98.890 Other specified postprocedural states; Z79.01 Long term (current) use of anticoagulants; Z79.899 Other long term (current) drug therapy ==

== ENCOUNTER → 2023-04-11 | Outpatient (CLI) | payer OTHER | END | disposition home or self-care (01) | LOC: LAB 14:09 | PROVIDERS: ATTEND Nurse Practitioner Family | DX: F31.9 Bipolar disorder, unspecified (principal) ==

== ENCOUNTER 2023-04-27 01:18 | Inpatient (IN) | payer OTHER ==
[~2023-04-27] VITALS: Ht 167.6 cm; Wt 101.8 kg
[2023-04-27] VITALS (18 sets, daily range): BP systolic 94–133; BP diastolic 30–79
[2023-04-27 01:49] LABS: BASO # 0.1 10*3/uL (0.0-0.1); BASO % 0.5 % (0.0-1.0); EOS % 0.1 % (1.0-4.0); HEMATOCRIT 27.9 % (42.0-52.0); LYMPH # 1.9 10*3/uL (1.3-4.4); LYMPH % 20.4 % (27.0-41.0); MEAN CELL VOLUME 103.3 fl (80.0-94.0); MEAN CORPUSCULAR HGB 33.7 pg (27.0-31.0); MEAN CORPUSCULAR HGB CONC 32.6 g/dl (33.0-37.0); MEAN PLATELET VOLUME 11.1 fl (9.6-12.3); MONO # 0.8 10*3/uL (0.1-1.0); MONO % 7.9 % (3.0-9.0); NEUT # 6.7 10*3/uL (2.3-7.9); NEUT % 70.7 % (47.0-73.0); PLATELET COUNT AUTOMATED 170 10*3/uL (130-400); RED CELL DISTRI WIDTH 14.3 % (0-14.5); WHITE BLOOD COUNT 9.5 10*3/uL (4.8-10.8)
[2023-04-27 02:01] LABS: ACT PARTIAL THROMBO TIME 36.1 SECONDS (20.0-32.1); INTERNATIONAL NORM RATIO 2.2 (2.0-3.5)
[2023-04-27] MEDS ORDERED: HYDROCHLOROTH12.5 M2 PO (02:07)
[2023-04-27] MEDS ORDERED: LITHIUM CARBON300 MG PO ×2 (02:09→07:44)
[2023-04-27] MEDS ORDERED: IRON325 M1 PO (02:10)
[2023-04-27] MEDS ORDERED: LOSARTAN POTASS50 M1 PO (02:11)
[2023-04-27] MEDS ORDERED: LITHIUM CARBON150 MG PO ×2 (02:13→07:43)
[2023-04-27 02:20] LABS: ALKALINE PHOSPHATASE 72 U/L (46-116); BUN 43 mg/dl (9-23); CHLORIDE 111 mmol/L (98-107); LIPASE 60 U/L (12-53); POTASSIUM 4.1 mmol/L (3.4-5.1); SGPT/ALT 27 U/L (10-49); TOTAL PROTEIN 6.4 gm/dL (6.0-8.0)
[2023-04-27 03:38] LABS: BASO % 0.3 % (0.0-1.0); HEMATOCRIT 27.8 % (42.0-52.0); LYMPH # 1.3 10*3/uL (1.3-4.4); LYMPH % 12.1 % (27.0-41.0); MEAN CELL VOLUME 104.1 fl (80.0-94.0); MEAN CORPUSCULAR HGB 34.1 pg (27.0-31.0); MEAN CORPUSCULAR HGB CONC 32.7 g/dl (33.0-37.0); MEAN PLATELET VOLUME 11.2 fl (9.6-12.3); MONO # 0.7 10*3/uL (0.1-1.0); MONO % 6.3 % (3.0-9.0); NEUT # 8.8 10*3/uL (2.3-7.9); NEUT % 80.9 % (47.0-73.0); PLATELET COUNT AUTOMATED 169 10*3/uL (130-400); RED BLOOD COUNT 2.67 10*6/uL (4.50-5.90); RED CELL DISTRI WIDTH 14.5 % (0-14.5); WHITE BLOOD COUNT 10.8 10*3/uL (4.8-10.8)
[2023-04-27 03:55] LABS: ACT PARTIAL THROMBO TIME 34.5 SECONDS (20.0-32.1)
[2023-04-27 04:15] LABS: ALKALINE PHOSPHATASE 72 U/L (46-116); BUN 52 mg/dl (9-23); CHLORIDE 113 mmol/L (98-107); CHOLESTEROL 138 mg/dL (<200); FREE T4 0.92 ng/dl (0.89-1.76); LDL CHOLESTEROL 81 mg/dL (9-159); POTASSIUM 4.4 mmol/L (3.4-5.1); SGPT/ALT 29 U/L (10-49); TOTAL PROTEIN 6.3 gm/dL (6.0-8.0); TRIGLYCERIDES 130 mg/dl (<150)
[2023-04-27 08:24] LABS: VITAMIN D, 25-HYDROXY 38.6 ng/mL (30-100)
[2023-04-27 10:14] LABS: BILIRUBIN Negative (Negative); BLOOD Negative (Negative); CLARITY Clear (Clear); COLOR Yellow (Yellow); GLUCOSE Negative (Negative); KETONE Negative (Negative); LEUKO ESTERASE Negative (Negative); NITRITE Negative (Negative); PH 5.5 (4.5-8.0); SPECIFIC GRAVITY 1.015 (1.001-1.030); UROBILINOGEN 0.2 E.U./dl (0.0-1.0)
[2023-04-27 10:32] LABS: MUCOUS 1+; RBC 0-2 rbc/hpf (0-2)
[2023-04-27 13:18] LABS: BASO % 0.1 % (0.0-1.0); LYMPH # 1.6 10*3/uL (1.3-4.4); LYMPH % 18.4 % (27.0-41.0); MEAN CELL VOLUME 107.1 fl (80.0-94.0); MEAN CORPUSCULAR HGB 34.4 pg (27.0-31.0); MEAN CORPUSCULAR HGB CONC 32.1 g/dl (33.0-37.0); MEAN PLATELET VOLUME 11.1 fl (9.6-12.3); MONO # 0.6 10*3/uL (0.1-1.0); MONO % 6.4 % (3.0-9.0); NEUT # 6.5 10*3/uL (2.3-7.9); NEUT % 74.8 % (47.0-73.0); PLATELET COUNT AUTOMATED 131 10*3/uL (130-400); RED BLOOD COUNT 2.24 10*6/uL (4.50-5.90); RED CELL DISTRI WIDTH 14.7 % (0-14.5); WHITE BLOOD COUNT 8.6 10*3/uL (4.8-10.8)
[2023-04-27 13:27] LABS: INTERNATIONAL NORM RATIO 1.6 (2.0-3.5)
[2023-04-27 13:54] LABS: ALKALINE PHOSPHATASE 60 U/L (46-116); BUN 44 mg/dl (9-23); CHLORIDE 117 mmol/L (98-107); POTASSIUM 4.7 mmol/L (3.4-5.1); SGPT/ALT 25 U/L (10-49); TOTAL PROTEIN 5.9 gm/dL (6.0-8.0)
[2023-04-27 23:45] LABS: BASO % 0.2 % (0.0-1.0); EOS % 0.2 % (1.0-4.0); HEMATOCRIT 27.9 % (42.0-52.0); LYMPH # 2.1 10*3/uL (1.3-4.4); LYMPH % 22.6 % (27.0-41.0); MEAN CORPUSCULAR HGB 32.9 pg (27.0-31.0); MEAN CORPUSCULAR HGB CONC 32.6 g/dl (33.0-37.0); MEAN PLATELET VOLUME 10.9 fl (9.6-12.3); MONO # 0.9 10*3/uL (0.1-1.0); MONO % 9.4 % (3.0-9.0); NEUT # 6.2 10*3/uL (2.3-7.9); NEUT % 67.1 % (47.0-73.0); PLATELET COUNT AUTOMATED 127 10*3/uL (130-400); RED BLOOD COUNT 2.77 10*6/uL (4.50-5.90); RED CELL DISTRI WIDTH 16.4 % (0-14.5); WHITE BLOOD COUNT 9.3 10*3/uL (4.8-10.8)
[2023-04-27 23:49] LABS: MEAN CELL VOLUME 100.7 fl (80.0-94.0)
[2023-04-28] VITALS (12 sets, daily range): BP systolic 80–128; BP diastolic 36–87
[2023-04-28 05:36] LABS: ALKALINE PHOSPHATASE 65 U/L (46-116); BUN 39 mg/dl (9-23); CHLORIDE 121 mmol/L (98-107); POTASSIUM 3.9 mmol/L (3.4-5.1); SGPT/ALT 25 U/L (10-49); TOTAL PROTEIN 6.2 gm/dL (6.0-8.0)
[2023-04-28 06:08] LABS: BASO % 0.2 % (0.0-1.0); EOS % 0.5 % (1.0-4.0); LYMPH # 2.4 10*3/uL (1.3-4.4); LYMPH % 27.7 % (27.0-41.0); MEAN CELL VOLUME 101.8 fl (80.0-94.0); MEAN CORPUSCULAR HGB 32.4 pg (27.0-31.0); MEAN CORPUSCULAR HGB CONC 31.8 g/dl (33.0-37.0); MEAN PLATELET VOLUME 11.8 fl (9.6-12.3); MONO # 0.8 10*3/uL (0.1-1.0); MONO % 9.3 % (3.0-9.0); NEUT # 5.4 10*3/uL (2.3-7.9); NEUT % 61.8 % (47.0-73.0); PLATELET COUNT AUTOMATED 126 10*3/uL (130-400); RED BLOOD COUNT 2.75 10*6/uL (4.50-5.90); RED CELL DISTRI WIDTH 17.2 % (0-14.5); WHITE BLOOD COUNT 8.6 10*3/uL (4.8-10.8)
[2023-04-28 06:14] LABS: INTERNATIONAL NORM RATIO 1.3 (2.0-3.5)
[2023-04-28 11:07] LABS: HEMOGOLBIN A1C 5.1 % (4.8-5.6)
[2023-04-29 06:03] LABS: BASO # 0.1 10*3/uL (0.0-0.1); BASO % 0.7 % (0.0-1.0); EOS # 0.2 10*3/uL (0.0-0.4); EOS % 2.7 % (1.0-4.0); HEMATOCRIT 25.9 % (42.0-52.0); LYMPH # 1.6 10*3/uL (1.3-4.4); LYMPH % 22.7 % (27.0-41.0); MEAN CELL VOLUME 100.8 fl (80.0-94.0); MEAN CORPUSCULAR HGB 33.1 pg (27.0-31.0); MEAN CORPUSCULAR HGB CONC 32.8 g/dl (33.0-37.0); MEAN PLATELET VOLUME 11.6 fl (9.6-12.3); MONO # 0.6 10*3/uL (0.1-1.0); MONO % 8.6 % (3.0-9.0); NEUT # 4.6 10*3/uL (2.3-7.9); NEUT % 64.7 % (47.0-73.0); NUCLEATED RED BLOOD CELL 0.1 10*3/uL (0.0-0.0); NUCLEATED RED BLOOD CELL 0.8 % (0.0-0.0); PLATELET COUNT AUTOMATED 119 10*3/uL (130-400); RED BLOOD COUNT 2.57 10*6/uL (4.50-5.90); RED CELL DISTRI WIDTH 17.4 % (0-14.5); WHITE BLOOD COUNT 7.1 10*3/uL (4.8-10.8)
[2023-04-29 07:48] LABS: ALKALINE PHOSPHATASE 72 U/L (46-116); CHLORIDE 116 mmol/L (98-107); POTASSIUM 3.5 mmol/L (3.4-5.1); SGPT/ALT 47 U/L (10-49)
[2023-04-29 08:00] VITALS: BP 137/32
[2023-04-29 08:18] LABS: BUN 25 mg/dl (9-23)
[2023-04-29 12:00] VITALS: BP 144/52
[2023-04-29 16:00] VITALS: BP 146/64
[2023-04-29 18:41] LABS: BUN 19 mg/dl (9-23); CHLORIDE 109 mmol/L (98-107); POTASSIUM 3.7 mmol/L (3.4-5.1)
[2023-04-29 20:00] VITALS: BP 119/54
[2023-04-30] VITALS: BP 141/62
[2023-04-30 04:00] VITALS: BP 135/58
[2023-04-30 06:38] LABS: BASO % 0.6 % (0.0-1.0); EOS # 0.2 10*3/uL (0.0-0.4); EOS % 4.3 % (1.0-4.0); HEMATOCRIT 24.2 % (42.0-52.0); LYMPH # 1.7 10*3/uL (1.3-4.4); LYMPH % 31.1 % (27.0-41.0); MEAN CELL VOLUME 101.7 fl (80.0-94.0); MEAN CORPUSCULAR HGB 33.2 pg (27.0-31.0); MEAN CORPUSCULAR HGB CONC 32.6 g/dl (33.0-37.0); MONO # 0.5 10*3/uL (0.1-1.0); MONO % 8.8 % (3.0-9.0); NEUT # 2.9 10*3/uL (2.3-7.9); NEUT % 54.8 % (47.0-73.0); NUCLEATED RED BLOOD CELL 0.4 % (0.0-0.0); PLATELET COUNT AUTOMATED 99 10*3/uL (130-400); RED BLOOD COUNT 2.38 10*6/uL (4.50-5.90); RED CELL DISTRI WIDTH 17.2 % (0-14.5); WHITE BLOOD COUNT 5.3 10*3/uL (4.8-10.8)
[2023-04-30 08:00] VITALS: BP 131/57
[2023-04-30 08:04] LABS: ACT PARTIAL THROMBO TIME 23.6 SECONDS (20.0-32.1); INTERNATIONAL NORM RATIO 1.3 (2.0-3.5)
[2023-04-30 09:36] LABS: ALKALINE PHOSPHATASE 82 U/L (46-116); BUN 17 mg/dl (9-23); CHLORIDE 111 mmol/L (98-107); POTASSIUM 3.6 mmol/L (3.4-5.1); SGPT/ALT 59 U/L (10-49); TOTAL PROTEIN 5.7 gm/dL (6.0-8.0)
[2023-04-30 12:00] VITALS: BP 118/55
[2023-04-30 16:00] VITALS: BP 132/54
[2023-04-30 20:00] VITALS: BP 124/52
[2023-05-01] VITALS: BP 108/45
[2023-05-01 04:00] VITALS: BP 102/49
[2023-05-01 05:06] LABS: ALKALINE PHOSPHATASE 92 U/L (46-116); BUN 14 mg/dl (9-23); CHLORIDE 110 mmol/L (98-107); POTASSIUM 3.3 mmol/L (3.4-5.1); SGPT/ALT 59 U/L (10-49); TOTAL PROTEIN 5.8 gm/dL (6.0-8.0)
[2023-05-01 06:30] LABS: BASO % 0.5 % (0.0-1.0); EOS # 0.2 10*3/uL (0.0-0.4); EOS % 3.2 % (1.0-4.0); HEMATOCRIT 23.2 % (42.0-52.0); LYMPH # 1.3 10*3/uL (1.3-4.4); LYMPH % 22.5 % (27.0-41.0); MEAN CELL VOLUME 102.7 fl (80.0-94.0); MEAN CORPUSCULAR HGB 32.7 pg (27.0-31.0); MEAN CORPUSCULAR HGB CONC 31.9 g/dl (33.0-37.0); MONO # 0.6 10*3/uL (0.1-1.0); MONO % 10.2 % (3.0-9.0); NEUT # 3.5 10*3/uL (2.3-7.9); NEUT % 63.1 % (47.0-73.0); PLATELET COUNT AUTOMATED 90 10*3/uL (130-400); RED BLOOD COUNT 2.26 10*6/uL (4.50-5.90); RED CELL DISTRI WIDTH 17.2 % (0-14.5); WHITE BLOOD COUNT 5.6 10*3/uL (4.8-10.8)
[2023-05-01 08:00] VITALS: BP 120/58
[2023-05-01 12:00] VITALS: BP 119/66
[2023-05-01 16:00] VITALS: BP 110/63
[2023-05-01 20:00] VITALS: BP 100/60
[2023-05-02] VITALS: BP 107/64
[2023-05-02 05:10] LABS: BUN 14 mg/dl (9-23); CHLORIDE 111 mmol/L (98-107); POTASSIUM 3.6 mmol/L (3.4-5.1)
[2023-05-02 06:08] LABS: HBSAG Negative (Negative); HEP B CORE AB, IGM Negative (Negative); HEPATITIS C ANTIBODY Non Reactive (Non Reactive)
[2023-05-02 06:09] LABS: BASO % 0.4 % (0.0-1.0); EOS # 0.2 10*3/uL (0.0-0.4); EOS % 3.7 % (1.0-4.0); HEMATOCRIT 23.1 % (42.0-52.0); LYMPH % 19.8 % (27.0-41.0); MEAN CELL VOLUME 102.7 fl (80.0-94.0); MEAN CORPUSCULAR HGB 33.3 pg (27.0-31.0); MEAN CORPUSCULAR HGB CONC 32.5 g/dl (33.0-37.0); MEAN PLATELET VOLUME 12.1 fl (9.6-12.3); MONO # 0.6 10*3/uL (0.1-1.0); MONO % 11.3 % (3.0-9.0); NEUT # 3.3 10*3/uL (2.3-7.9); NEUT % 64.2 % (47.0-73.0); PLATELET COUNT AUTOMATED 86 10*3/uL (130-400); RED BLOOD COUNT 2.25 10*6/uL (4.50-5.90); RED CELL DISTRI WIDTH 17.4 % (0-14.5); WHITE BLOOD COUNT 5.2 10*3/uL (4.8-10.8)
[2023-05-02 08:00] VITALS: BP 127/50
[2023-05-02] MEDS ORDERED: XIFAXAN550 MG PO (12:09)
[2023-05-02] MEDS ORDERED: Carafate1 GM PO (12:09)
[2023-05-02] MEDS ORDERED: PROTONIX40 MG PO (12:09)
[2023-05-02] MEDS ORDERED: LACTULOSE20 GM/30 M PO (12:09)
[2023-05-02] MEDS ORDERED: TAMSULOSIN HCL0.4 MG PO (12:09)
[2023-05-02] MEDS ORDERED: BAYER ASPIRIN C81 MG PO (12:57)
== END 2023-05-02 13:48 | disposition home or self-care (01) | DRG 368 ==
LOC: ED 01:18 → EDHOLD 02:30 → ICCU 02:30
PROVIDERS: Internal Medicine; Student in an Organized Health Care Education/Training Program; ADMIT Internal Medicine; ATTEND Internal Medicine
PROC: 30233N1 Transfusion of Nonautologous Red Blood Cells into Peripheral Vein, Percutaneous Approach (ICD-10-PCS; principal; 2023-04-27)
PROC: 0DJ08ZZ Inspection of Upper Intestinal Tract, Via Natural or Artificial Opening Endoscopic (ICD-10-PCS; 2023-04-28)
DX: K20.91 Esophagitis, unspecified with bleeding (principal); E43 Unspecified severe protein-calorie malnutrition; G93.41 Metabolic encephalopathy; I21.4 Non-ST elevation (NSTEMI) myocardial infarction; N17.0 Acute kidney failure with tubular necrosis; E87.0 Hyperosmolality and hypernatremia; Z66 Do not resuscitate; R73.9 Hyperglycemia, unspecified; F31.9 Bipolar disorder, unspecified; D50.0 Iron deficiency anemia secondary to blood loss (chronic); D11.0 Benign neoplasm of parotid gland; K74.60 Unspecified cirrhosis of liver; I48.0 Paroxysmal atrial fibrillation; E83.39 Other disorders of phosphorus metabolism; D53.9 Nutritional anemia, unspecified; I95.89 Other hypotension; Z82.49 Family history of ischemic heart disease and other diseases of the circulatory system; Z80.1 Family history of malignant neoplasm of trachea, bronchus and lung; Z68.36 Body mass index [BMI] 36.0-36.9, adult

== ENCOUNTER → 2023-05-29 | Day surgery (SDC) | payer OTHER ==
[2023-05-26 11:07] VITALS: BP 139/46
[2023-05-26 11:57] LABS: BASO % 0.8 % (0.0-1.0); EOS # 0.2 10*3/uL (0.0-0.4); EOS % 5.2 % (1.0-4.0); HEMATOCRIT 29.9 % (42.0-52.0); LYMPH % 26.2 % (27.0-41.0); MEAN CELL VOLUME 101.7 fl (80.0-94.0); MEAN CORPUSCULAR HGB 31.6 pg (27.0-31.0); MEAN CORPUSCULAR HGB CONC 31.1 g/dl (33.0-37.0); MEAN PLATELET VOLUME 10.4 fl (9.6-12.3); MONO # 0.4 10*3/uL (0.1-1.0); MONO % 10.9 % (3.0-9.0); NEUT # 2.1 10*3/uL (2.3-7.9); NEUT % 56.6 % (47.0-73.0); PLATELET COUNT AUTOMATED 158 10*3/uL (130-400); RED BLOOD COUNT 2.94 10*6/uL (4.50-5.90); RED CELL DISTRI WIDTH 15.4 % (0-14.5); WHITE BLOOD COUNT 3.7 10*3/uL (4.8-10.8)
[2023-05-26 12:09] LABS: ACT PARTIAL THROMBO TIME 26.2 SECONDS (20.0-32.1); INTERNATIONAL NORM RATIO 1.2 (2.0-3.5)
[~2023-05-29] VITALS: Ht 167.6 cm; Wt 108.9 kg
[~2023-05-29] MED LIST changes: +BAYER ASPIRIN C81 MG PO; +Carafate1 GM PO; +HYDROCHLOROTH12.5 M2 PO; +IRON325 M1 PO; +LACTULOSE20 GM/30 M PO; +LOSARTAN POTASS50 M1 PO; +PROTONIX40 MG PO; +TAMSULOSIN HCL0.4 MG PO; +XIFAXAN550 MG PO
[2023-05-29 13:45] VITALS: BP 144/74
[2023-05-29 14:53] VITALS: BP 114/47
[2023-05-29 15:15] VITALS: BP 104/42
[2023-05-29 15:24] VITALS: BP 95/47
[2023-05-29 15:45] VITALS: BP 110/37
[2023-05-29 15:58] VITALS: BP 101/39
== END ==
LOC: SDC 05-25 14:00
PROVIDERS: ATTEND Specialist
DX: K11.8 Other diseases of salivary glands (principal); I10 Essential (primary) hypertension; F41.9 Anxiety disorder, unspecified; F32.9 Major depressive disorder, single episode, unspecified; I48.91 Unspecified atrial fibrillation; G47.33 Obstructive sleep apnea (adult) (pediatric); Z79.899 Other long term (current) drug therapy; Z98.890 Other specified postprocedural states

== ENCOUNTER → 2023-06-09 | Outpatient (CLI) | payer OTHER ==
[~2023-06-09] MED LIST changes: +ANTIVERT25 M2 PO
== END | disposition home or self-care (01) ==
LOC: LAB 09:58
PROVIDERS: ATTEND Specialist
DX: D49.0 Neoplasm of unspecified behavior of digestive system (principal)

== ENCOUNTER 2023-06-16 08:51 | Emergency (ER) | payer OTHER ==
[~2023-06-16] VITALS: Wt 103.0 kg
[~2023-06-16 08:51] MED LIST changes: -ANTIVERT25 M2 PO
[2023-06-16 09:21] LABS: BASO % 0.7 % (0.0-1.0); EOS # 0.2 10*3/uL (0.0-0.4); EOS % 5.9 % (1.0-4.0); LYMPH # 0.7 10*3/uL (1.3-4.4); LYMPH % 25.5 % (27.0-41.0); MEAN CELL VOLUME 99.1 fl (80.0-94.0); MEAN CORPUSCULAR HGB 30.3 pg (27.0-31.0); MEAN CORPUSCULAR HGB CONC 30.6 g/dl (33.0-37.0); MEAN PLATELET VOLUME 11.1 fl (9.6-12.3); MONO # 0.2 10*3/uL (0.1-1.0); MONO % 6.6 % (3.0-9.0); NEUT # 1.8 10*3/uL (2.3-7.9); NEUT % 61.3 % (47.0-73.0); PLATELET COUNT AUTOMATED 120 10*3/uL (130-400); RED BLOOD COUNT 3.43 10*6/uL (4.50-5.90); RED CELL DISTRI WIDTH 15.5 % (0-14.5); WHITE BLOOD COUNT 2.9 10*3/uL (4.8-10.8)
[2023-06-16 09:50] LABS: ALKALINE PHOSPHATASE 108 U/L (46-116); BUN 14 mg/dl (9-23); CHLORIDE 113 mmol/L (98-107); LIPASE 132 U/L (12-53); POTASSIUM 3.6 mmol/L (3.4-5.1); SGPT/ALT 32 U/L (10-49)
[2023-06-16 11:06] LABS: BILIRUBIN Negative (Negative); BLOOD Negative (Negative); CLARITY Clear (Clear); COLOR Yellow (Yellow); GLUCOSE Negative (Negative); KETONE Negative (Negative); LEUKO ESTERASE Negative (Negative); NITRITE Negative (Negative); UROBILINOGEN 0.2 E.U./dl (0.0-1.0)
[2023-06-16 11:22] LABS: BACTERIA TRACE; MUCOUS 1+; WBC 0-2 wbc/hpf (0-5)
[2023-06-16] MEDS ORDERED: ANTIVERT25 M2 PO (11:42)
== END 2023-06-16 11:55 | disposition home or self-care (01) ==
LOC: ED 08:51
PROVIDERS: Emergency Medicine
DX: R42 Dizziness and giddiness (principal); I10 Essential (primary) hypertension; I48.91 Unspecified atrial fibrillation; F31.9 Bipolar disorder, unspecified; Z98.890 Other specified postprocedural states; Z98.49 Cataract extraction status, unspecified eye

== ENCOUNTER → 2023-06-27 | Outpatient (CLI) | payer OTHER ==
[~2023-06-27] MED LIST changes: +ANTIVERT25 M2 PO
== END | disposition home or self-care (01) ==
LOC: CT 02:44
PROVIDERS: ATTEND Internal Medicine Gastroenterology
DX: K74.69 Other cirrhosis of liver (principal); R16.1 Splenomegaly, not elsewhere classified; K20.90 Esophagitis, unspecified without bleeding; I70.0 Atherosclerosis of aorta

== ENCOUNTER → 2023-07-04 | Outpatient (CLI) | payer OTHER | END | disposition home or self-care (01) | LOC: LAB 11:37 | PROVIDERS: ATTEND Nurse Practitioner Family | DX: F31.9 Bipolar disorder, unspecified (principal) ==

== ENCOUNTER → 2023-09-07 | Outpatient (CLI) | payer MEDICARE ==
[2023-09-07 10:01] LABS: ALKALINE PHOSPHATASE 125 U/L (46-116); BUN 21 mg/dl (9-23); CHLORIDE 112 mmol/L (98-107); CHOLESTEROL 187 mg/dL (<200); LDL CHOLESTEROL 118 mg/dL (9-159); POTASSIUM 4.1 mmol/L (3.4-5.1); SGPT/ALT 39 U/L (5-49); TRIGLYCERIDES 96 mg/dl (<150)
[2023-09-08 05:05] LABS: ALPHA-1-ANTITRYPSIN, SERUM 156 mg/dL (101-187); IMMUNOGLOBULIN G, QNT 1767 mg/dL (603-1613); IMMUNOGLOBULIN M, QNT 114 mg/dL (20-172)
[2023-09-08 06:06] LABS: HEPATITIS B SURFACE AB Non Reactive (.); HEPATITIS B SURFACE AG Negative (Negative)
[2023-09-08 14:06] LABS: ANTI-SMOOTH MUSCLE ANTIBODY 6 Units (0-19)
[2023-09-12 00:03] LABS: ALPHA 2-MACAROGLOBULINS 358 mg/dL (110-276); ALT (SGPT) P5P 36 IU/L (0-55); APOLIPOPROEIN A-1 136 mg/dL (101-178); BILIRUBIN, TOTAL 0.6 mg/dL (0.0-1.2); CHOLESTEROL, TOTAL 201 mg/dL (100-199); GGT 126 IU/L (0-65); GLUCOSE, SERUM 104 mg/dL (70-99); HAPTOGLOBIN 47 mg/dL (32-363); TRIGLYCERIDES 100 mg/dL (0-149)
== END | disposition home or self-care (01) ==
LOC: LAB 08:18
PROVIDERS: ATTEND Internal Medicine Gastroenterology
DX: Z11.59 Encounter for screening for other viral diseases (principal); K20.90 Esophagitis, unspecified without bleeding; R79.89 Other specified abnormal findings of blood chemistry; Z72.89 Other problems related to lifestyle; R55 Syncope and collapse; Z79.899 Other long term (current) drug therapy; I10 Essential (primary) hypertension

== ENCOUNTER → 2023-09-22 | Outpatient (CLI) | payer MEDICARE | END | disposition home or self-care (01) | LOC: LAB 09:11 | PROVIDERS: ATTEND Nurse Practitioner Family | DX: F31.9 Bipolar disorder, unspecified (principal) ==

== ENCOUNTER → 2023-11-16 | Outpatient (CLI) | payer MEDICARE | END | disposition home or self-care (01) | LOC: LAB 13:16 | PROVIDERS: ATTEND Nurse Practitioner Family | DX: F31.9 Bipolar disorder, unspecified (principal) ==

== ENCOUNTER → 2023-12-14 | Outpatient (CLI) | payer MEDICARE | END | disposition home or self-care (01) | LOC: LAB 12:02 | PROVIDERS: ATTEND Nurse Practitioner Family | DX: F31.9 Bipolar disorder, unspecified (principal) ==

== ENCOUNTER → 2024-01-30 | Outpatient (CLI) | payer MEDICARE | END | disposition home or self-care (01) | LOC: LAB 11:53 | PROVIDERS: ATTEND Nurse Practitioner Family | DX: F31.9 Bipolar disorder, unspecified (principal) ==

== ENCOUNTER → 2024-02-26 | Outpatient (CLI) | payer MEDICARE | END | disposition home or self-care (01) | LOC: LAB 15:58 | PROVIDERS: ATTEND Nurse Practitioner Family | DX: F31.9 Bipolar disorder, unspecified (principal) ==

== ENCOUNTER → 2024-03-12 | Outpatient (CLI) | payer MEDICARE | END | disposition home or self-care (01) | LOC: RESCLI 00:48 | PROVIDERS: ATTEND Student in an Organized Health Care Education/Training Program | DX: I10 Essential (primary) hypertension (principal); I25.10 Atherosclerotic heart disease of native coronary artery without angina pectoris; K72.90 Hepatic failure, unspecified without coma; E55.9 Vitamin D deficiency, unspecified; E53.8 Deficiency of other specified B group vitamins; D64.9 Anemia, unspecified; F31.9 Bipolar disorder, unspecified; R29.818 Other symptoms and signs involving the nervous system; I48.91 Unspecified atrial fibrillation; Z98.890 Other specified postprocedural states; Z82.49 Family history of ischemic heart disease and other diseases of the circulatory system; Z79.899 Other long term (current) drug therapy ==

== ENCOUNTER → 2024-04-23 | Outpatient (CLI) | payer MEDICARE | LOC: LAB 10:17 | PROVIDERS: ATTEND Nurse Practitioner Family | DX: F31.9 Bipolar disorder, unspecified (principal) ==

== ENCOUNTER → 2024-07-19 | Outpatient (CLI) | payer MEDICARE | END | disposition home or self-care (01) | LOC: LAB 11:51 | PROVIDERS: ATTEND Nurse Practitioner Family | DX: F31.9 Bipolar disorder, unspecified (principal) ==

== ENCOUNTER → 2024-10-09 | Outpatient (CLI) | payer MEDICARE | END | disposition home or self-care (01) | LOC: LAB 10:18 | PROVIDERS: ATTEND Nurse Practitioner Family | DX: F31.9 Bipolar disorder, unspecified (principal) ==

== ENCOUNTER → 2024-11-06 | Outpatient (CLI) | payer MEDICARE | END | disposition home or self-care (01) | LOC: LAB 13:10 | PROVIDERS: ATTEND Nurse Practitioner Family | DX: F31.9 Bipolar disorder, unspecified (principal) ==

== ENCOUNTER → 2024-11-21 | Outpatient (CLI) | payer MEDICARE ==
[2024-11-21 11:25] LABS: BASO % 0.7 % (0.0-1.0); EOS # 0.2 10*3/uL (0.0-0.4); HEMATOCRIT 34.7 % (42.0-52.0); MEAN CELL VOLUME 97.5 fl (80.0-94.0); MEAN CORPUSCULAR HGB CONC 32.9 g/dl (33.0-37.0); MEAN PLATELET VOLUME 10.9 fl (9.6-12.3); MONO # 0.3 10*3/uL (0.1-1.0); MONO % 9.8 % (3.0-9.0); NEUT # 1.4 10*3/uL (2.3-7.9); NEUT % 51.7 % (47.0-73.0); PLATELET COUNT AUTOMATED 85 10*3/uL (130-400); RED BLOOD COUNT 3.56 10*6/uL (4.50-5.90); RED CELL DISTRI WIDTH 14.9 % (0-14.5); WHITE BLOOD COUNT 2.8 10*3/uL (4.8-10.8)
[2024-11-21 11:58] LABS: ALKALINE PHOSPHATASE 129 U/L (46-116); BUN 24 mg/dl (9-23); CHLORIDE 111 mmol/L (98-107); POTASSIUM 3.9 mmol/L (3.4-5.1); SGPT/ALT 44 U/L (5-49); TOTAL PROTEIN 7.7 gm/dL (6.0-8.0)
== END | disposition home or self-care (01) ==
LOC: LAB 10:40
PROVIDERS: ATTEND Nurse Practitioner Family
DX: K74.60 Unspecified cirrhosis of liver (principal); D64.9 Anemia, unspecified

== ENCOUNTER → 2025-01-08 | Outpatient (CLI) | payer MEDICARE | END | disposition home or self-care (01) | LOC: LAB 11:41 | PROVIDERS: ATTEND Nurse Practitioner Family | DX: F31.9 Bipolar disorder, unspecified (principal) ==

== ENCOUNTER → 2025-01-27 | Outpatient (CLI) | payer MEDICARE | END | disposition home or self-care (01) | LOC: LAB 11:47 | PROVIDERS: ATTEND Nurse Practitioner Family | DX: F31.9 Bipolar disorder, unspecified (principal) ==

== ENCOUNTER → 2025-02-11 | Outpatient (CLI) | payer MEDICARE | END | disposition home or self-care (01) | LOC: LAB 11:23 | PROVIDERS: ATTEND Nurse Practitioner Family | DX: F31.9 Bipolar disorder, unspecified (principal) ==

== ENCOUNTER → 2025-02-25 | Outpatient (CLI) | payer MEDICARE | END | disposition home or self-care (01) | LOC: LAB 11:23 | PROVIDERS: ATTEND Nurse Practitioner Family | DX: F31.9 Bipolar disorder, unspecified (principal) ==

== ENCOUNTER → 2025-03-10 | Outpatient (CLI) | payer MEDICARE | END | disposition home or self-care (01) | LOC: RESCLI 00:51 | PROVIDERS: ATTEND Internal Medicine | DX: I25.10 Atherosclerotic heart disease of native coronary artery without angina pectoris (principal); I48.91 Unspecified atrial fibrillation; E55.9 Vitamin D deficiency, unspecified; I10 Essential (primary) hypertension; D64.9 Anemia, unspecified; R39.11 Hesitancy of micturition; E53.8 Deficiency of other specified B group vitamins; K72.90 Hepatic failure, unspecified without coma; F31.9 Bipolar disorder, unspecified; K20.90 Esophagitis, unspecified without bleeding ==

== ENCOUNTER → 2025-03-25 | Outpatient (CLI) | payer MEDICARE | END | disposition home or self-care (01) | LOC: LAB 08:53 | PROVIDERS: ATTEND Nurse Practitioner Family | DX: F31.9 Bipolar disorder, unspecified (principal) ==

== ENCOUNTER → 2025-04-07 | Outpatient (CLI) | payer MEDICARE | END | disposition home or self-care (01) | LOC: LAB 13:39 | PROVIDERS: ATTEND Nurse Practitioner Family | DX: F31.9 Bipolar disorder, unspecified (principal) ==

== ENCOUNTER → 2025-06-26 | Outpatient (CLI) | payer MEDICARE ==
[2025-06-26 08:19] LABS: BASO # 0.0 10*3/uL (0.0-0.1); BASO % 0.8 % (0.0-1.0); EOS # 0.1 10*3/uL (0.0-0.4); EOS % 5.1 % (1.0-4.0); MEAN CELL VOLUME 98.9 fl (80.0-94.0); MEAN CORPUSCULAR HGB 32.3 pg (27.0-31.0); MEAN PLATELET VOLUME 11.3 fl (9.6-12.3); MONO # 0.2 10*3/uL (0.1-1.0); MONO % 8.9 % (3.0-9.0); NEUT # 1.3 10*3/uL (2.3-7.9); NEUT % 49.0 % (47.0-73.0); NUCLEATED RED BLOOD CELL 0.0 % (0.0-0.0); NUCLEATED RED BLOOD CELL 0.0 10*3/uL (0.0-0.0); PLATELET COUNT AUTOMATED 76 10*3/uL (130-400); RED CELL DISTRI WIDTH 15.2 % (0-14.5)
[2025-06-26 08:40] LABS: BUN 21 mg/dl (9-23); SGPT/ALT 41 U/L (5-49)
== END | disposition home or self-care (01) ==
LOC: LAB 07:47
PROVIDERS: Internal Medicine Gastroenterology; ATTEND Nurse Practitioner Family
DX: K74.60 Unspecified cirrhosis of liver (principal)

== ENCOUNTER → 2025-07-08 | Outpatient (CLI) | payer MEDICARE | END | disposition home or self-care (01) | LOC: LAB 11:09 | PROVIDERS: ATTEND Nurse Practitioner Family | DX: F31.9 Bipolar disorder, unspecified (principal) ==

== ENCOUNTER → 2025-08-12 | Outpatient (CLI) | payer MEDICARE | END | disposition home or self-care (01) | LOC: LAB 11:20 | PROVIDERS: ATTEND Nurse Practitioner Family | DX: F31.9 Bipolar disorder, unspecified (principal) ==

== ENCOUNTER → 2025-08-26 | Outpatient (CLI) | payer MEDICARE | END | disposition home or self-care (01) | LOC: LAB 11:15 | PROVIDERS: ATTEND Nurse Practitioner Family | DX: F31.9 Bipolar disorder, unspecified (principal) ==

== ENCOUNTER → 2025-09-22 | Outpatient (CLI) | payer MEDICARE | END | disposition home or self-care (01) | LOC: LAB 11:33 | PROVIDERS: ATTEND Nurse Practitioner Family | DX: F31.9 Bipolar disorder, unspecified (principal) ==